=== PATIENT | female | born 1970 | race Caucasian/White ===

== ENCOUNTER 2017-06-19 12:28 | Inpatient (IN) | payer OTHER, MEDICARE ==
[~2017-06-19] VITALS: Ht 157.5 cm; Wt 76.5 kg
[~2017-06-19 12:28] MED LIST: ABIL15TA2 PO; ADVA250A INH; ALBU0.086 INH; CELE20TA PO; LEVA750T9 PO; LORTA5 PO; PANT20 PO; PRED20 PO; VENL50TA PO
[2017-06-19 12:47] VITALS: BP 139/88; PULSE 99; RESP 16; TEMP 97.5; O2SAT 97
[2017-06-19 12:55] VITALS: BP 139/88; PULSE 92; RESP 16; O2SAT 98
[2017-06-19] MEDS ORDERED: OXCA600T32 PO (13:01)
[2017-06-19] MEDS ORDERED: PANT20 PO (13:01)
[2017-06-19] MEDS ORDERED: ADVA250A INH (13:01)
[2017-06-19] MEDS ORDERED: VENL50TA PO (13:01)
[2017-06-19] MEDS ORDERED: ALBUAER3 INH (13:01)
[2017-06-19] MEDS ORDERED: CITA20TA4 PO (13:01)
--- NOTE | 2017-06-19 13:02 | PD ---
HPI Chief Complaint: Psychiatric Symptoms Time Seen by Provider: 12:58 Travel History International Travel<30 days: No Contact w/Intl Traveler<30days: No Traveled to known affect area: No History of Present Illness HPI 46-year-old female presents to the emergency Department under Her act by local police. The patient is a poor historian. She states that she is the holy Jacqui and is trying to save our planet. According the Her act, she thought she was from [place] when police arrived. She is oriented to person, place , time. According the Her act, she does have a history of bipolar disorder. It is unclear she is taking her medications that she is unsure herself. PFSH Past Medical History Bipolar Disorder: Yes Anxiety: Yes Depression: Yes COPD: Yes Diabetes: Yes (TYPE II) Patient Takes Glucophage: No Diminished Hearing: No Seizures: Yes Influenza Vaccination: No ?: Not Menopausal: No : 1 Para: 1 : 2 Past Surgical History Hysterectomy: Yes (PARTIAL) Tonsillectomy: Yes Other Surgery: Yes (SKIN CA REMOVED) Social History Alcohol Use: Yes (BEER WEEKLY) Tobacco Use: Yes (1 / PPD) Substance Use: No Allergies-Medications (Allergen,Severity, Reaction): Coded Allergies: Amoxicillin (Verified Allergy, Mild, VOMITING, 06/19/17) Reported Meds & Prescriptions Reported Meds & Active Scripts Active Effexor (Venlafaxine HCl) 50 Mg Tab 50 Mg PO BID 30 Days Reported Oxtellar Xr (Oxcarbazepine) 600 Mg Tab 900 Mg PO DAILY Effexor (Venlafaxine HCl) 50 Mg Tab 50 Mg PO Q12H Protonix (Pantoprazole Sodium) 20 Mg Tab 20 Mg PO DAILY Advair Diskus Inh (Fluticasone-Salmeterol Inh) 250-50 Mcg/Blist Aer 1 Puff INH BID Rinse mouth after use. Citalopram (Citalopram Hydrobromide) 20 Mg Tab 20 Mg PO DAILY Proair Hfa 8.5 GM Inh (Albuterol Sulfate) 90 Mcg/Act Aer 2 Puff INH Q4-6H PRN 108 mcg/actuation Review of Systems Except as stated in HPI: all other systems reviewed are Neg Physical Exam Exam Limitations: Psychotic Narrative GENERAL: Well-nourished, well-developed female patient, afebrile. Patient is alert. She is oriented to person, place, time. SKIN: Focused skin assessment warm/dry. HEAD: Normocephalic. EYES: No scleral icterus. No injection or drainage. NECK: Supple, trachea midline. No JVD or lymphadenopathy. CARDIOVASCULAR: Regular rate and rhythm without murmurs, gallops, or rubs. RESPIRATORY: Breath sounds equal bilaterally. No accessory muscle use. GASTROINTESTINAL: Abdomen soft, non-tender, nondistended. MUSCULOSKELETAL: No cyanosis, or edema. PSYCHIATRIC: Patient is delusional believing she is the last of the holy jacqui and is trying to save our planet. Data Data Last Documented VS Vital Signs Date Time Temp Pulse Resp B/P Pulse Ox O2 Delivery O2 Flow Rate FiO2 06/19/17 12:55 92 16 139/88 98 Room Air 06/19/17 12:47 97.5 Orders Complete Blood Count With Diff (06/19/17 12:57) Comprehensive Metabolic Panel (06/19/17 12:57) Psych Screen (06/19/17 12:57) Drug Screen, Random Urine (06/19/17 12:57) Alcohol (Ethanol) (06/19/17 12:57) Ct Brain W/O Iv Contrast(Rout) (06/19/17 ) Urinalysis - C+S If Indicated (06/19/17 13:10) Cath For Specimen (06/19/17 13:10) Labs Laboratory Tests Test 06/19/17 06/19/17 13:30 13:40 White Blood Count 5.8 TH/MM3 Red Blood Count 4.86 MIL/MM3 Hemoglobin 14.9 GM/DL Hematocrit 42.4 % Mean Corpuscular Volume 87.3 FL Mean Corpuscular Hemoglobin 30.6 PG Mean Corpuscular Hemoglobin 35.1 % Concent Red Cell Distribution Width 14.2 % Platelet Count 176 TH/MM3 Mean Platelet Volume 6.9 FL Neutrophils (%) (Auto) 49.4 % Lymphocytes (%) (Auto) 38.7 % Monocytes (%) (Auto) 8.0 % Eosinophils (%) (Auto) 3.2 % Basophils (%) (Auto) 0.7 % Neutrophils # (Auto) 2.8 TH/MM3 Lymphocytes # (Auto) 2.2 TH/MM3 Monocytes # (Auto) 0.5 TH/MM3 Eosinophils # (Auto) 0.2 TH/MM3 Basophils # (Auto) 0.0 TH/MM3 CBC Comment DIFF FINAL Differential Comment Sodium Level 138 MEQ/L Potassium Level 4.0 MEQ/L Chloride Level 104 MEQ/L Carbon Dioxide Level 25.3 MEQ/L Anion Gap 9 MEQ/L Blood Urea Nitrogen 11 MG/DL Creatinine 0.76 MG/DL Estimat Glomerular Filtration 82 ML/MIN Rate Random Glucose 87 MG/DL Calcium Level 9.2 MG/DL Total Bilirubin 0.4 MG/DL Aspartate Amino Transf 12 U/L (AST/SGOT) Alanine Aminotransferase 19 U/L (ALT/SGPT) Alkaline Phosphatase 70 U/L Total Protein 6.7 GM/DL Albumin 3.9 GM/DL Ethyl Alcohol Level LESS THAN 3 MG/DL Urine Color YELLOW Urine Turbidity CLEAR Urine pH 7.0 Urine Specific [place] 1.023 Urine Protein TRACE mg/dL Urine Glucose (UA) NEG mg/dL Urine Ketones 10 mg/dL Urine Occult Blood NEG Urine Nitrite NEG Urine Bilirubin NEG Urine Urobilinogen 2.0 MG/DL Urine Leukocyte Esterase NEG Urine RBC 2 /hpf Urine WBC LESS THAN 1 /hpf Urine Squamous Epithelial 2 /hpf Cells Urine Mucus FEW /lpf Microscopic Urinalysis Comment CULT NOT INDICATED Urine Opiates Screen NEG Urine Barbiturates Screen NEG Urine Amphetamines Screen NEG Urine Benzodiazepines Screen NEG Urine Cocaine Screen NEG Urine Cannabinoids Screen POS MDM Medical Decision Making Medical Screen Exam Complete: Yes Emergency Medical Condition: Yes Medical Record Reviewed: Yes Interpretation(s) CT brain - CONCLUSION: Unremarkable study except for slight mucoperiosteal thickening right maxillary sinus Differential Diagnosis Bipolar disorder versus schizophrenia versus psychosis versus substance abuse versus intracranial abnormality for electrolyte abnormality Narrative Course 46-year-old female presents to the emergency Department under Her act by local police for psychiatric evaluation. Patient is bizarre. CBC, CMP, alcohol level, UA, urine drug screen are ordered and pending. CT of the brain is ordered and pending. CBC shows no acute abnormality. CMP shows no acute abnormality. Alcohol level is less than 3. UDS is positive for cannabinoids. UA is negative for acute infection. CT of the brain shows unremarkable study except for slight mucoperiosteal thickening right maxillary sinus. Patient is medically cleared for psychiatric screening and disposition. Mental health screening discussed with the patient. Psychiatric screen ordered. Diagnosis Primary Impression: Bipolar disorder Qualified Code: F31.2 - Bipolar affective disorder, currently manic, severe, with psychotic features Additional Impression: Medical clearance for psychiatric admission Additional Instructions: Patient is medically cleared for psychiatric screening and disposition. Condition: Stable Pilar Wade Jun 19, 2017 13:02
[2017-06-19 13:48] LABS: AUTOMATED NEUTROPHIL # 2.8 TH/MM3 (1.8-7.7); BASOPHIL % 0.7 % (0.0-2.0); EOSINOPHIL # 0.2 TH/MM3 (0-0.4); EOSINOPHIL % 3.2 % (0.0-4.0); HEMATOCRIT 42.4 % (35.0-46.0); HEMO FLAGS DIFF FINAL; LYMPH % 38.7 % (9.0-44.0); LYMPHOCYTE # 2.2 TH/MM3 (1.0-4.8); MEAN CELL VOLUME 87.3 FL (80.0-100.0); MEAN CORPUSCULAR HEMOGLOBIN 30.6 PG (27.0-34.0); MEAN CORPUSCULAR HGB CONC 35.1 % (32.0-36.0); NEUT % 49.4 % (16.0-70.0); PLATELET COUNT 176 TH/MM3 (150-450); RED BLOOD COUNT 4.86 MIL/MM3 (4.00-5.30); RED CELL DISTRIBUTION WIDTH 14.2 % (11.6-17.2); WHITE BLOOD COUNT 5.8 TH/MM3 (4.0-11.0)
--- NOTE | 2017-06-19 13:50 | RADRPT ---
EXAM DATE/TIME: 06/19/2017 13:22 [place] COMPARISON: No previous studies available for comparison. INDICATIONS : Altered mental status for two weeks. RADIATION DOSE: 33.25 CTDIvol (mGy) MEDICAL HISTORY : Seizures. Diabetes mellitus type 2. Bipolar SURGICAL HISTORY : Hysterectomy. ENCOUNTER: Initial ACUITY: 2 weeks PAIN SCALE: 2/10 LOCATION: Bilateral cranial TECHNIQUE: Multiple contiguous axial images were obtained of the head. Using automated exposure control and adj ustment of the mA and/or kV according to patient size, radiation dose was kept as low as reasonably a chievable to obtain optimal diagnostic quality images. DICOM format image data is available electro nically for review and comparison. FINDINGS: There is no evidence for intracranial hemorrhage, mass effect, mass lesions, edema, or extra-axial fl uid collections. The visualized bony structures appear intact. The ventricles are normal size for t he patient's age. There are no signs of acute infarction for technique. There is mild mucoperiosteal thickening within the right maxillary sinus. CONCLUSION: Unremarkable study except for slight mucoperiosteal thickening right maxillary s inus. K. Romain Quigley MD on June 19, 2017 at 13:47 Board Certified Radiologist. This report was verified electronically.
[2017-06-19 14:04] LABS: ANION GAP 9 MEQ/L (5-15); AST (GOT) 12 U/L (15-37); BICARBONATE 25.3 MEQ/L (21.0-32.0); BLOOD UREA NITROGEN 11 MG/DL (7-18); CHLORIDE 104 MEQ/L (98-107); GLOMERULAR FILTRATION RATE 82 ML/MIN (>89); SODIUM (NA) 138 MEQ/L (136-145)
[2017-06-19 14:07] LABS: ALKALINE PHOSPHATASE 70 U/L (45-117); ALT (GPT) 19 U/L (10-53); TOTAL BILIRUBIN ADULT 0.4 MG/DL (0.2-1.0)
[2017-06-19 14:10] LABS: BLOOD, URINE NEG (NEG); COMMENT (UR) CULT NOT INDICATED; CULTURE IF INDICATED CULT NOT INDICATED; GLUCOSE,URINE NEG (NEG); KETONE, URINE 10 mg/dL (NEG); MUCUS URINE FEW /lpf (OCC); NITRITE,URINE NEG (NEG); SQUAMOUS EPITHELIAL CELL URINE 2 /hpf (0-5); URINE COLOR YELLOW (YELLW/STRAW)
[2017-06-19 14:12] LABS: AMPHETAMINE, URINE NEG (NEG); BARBITURATES, URINE NEG (NEG); COCAINE, URINE NEG (NEG)
[2017-06-19 16:14] VITALS: BP 127/91; PULSE 103; RESP 18; O2SAT 98
[2017-06-19] MEDS ORDERED: hydrOXYzine HCL 50 MG TAB PO PRN (21:30)
[2017-06-19] MEDS ORDERED: MAGNESIUM HYDROXIDE SUSP 30 ML CUP PO PRN (21:30)
[2017-06-19] MEDS ORDERED: LORazepam 2 MG/ML VIAL IM PRN (21:30)
[2017-06-19] MEDS ORDERED: LORazepam 1 MG TAB PO PRN (21:30)
[2017-06-19] MEDS ORDERED: ALUMINUM/MAGNESIUM/SIMETH 30 ML CUP PO PRN (21:30)
[2017-06-19] MEDS ORDERED: diphenhydrAMINE HCL 50 MG/ML VIAL IM PRN (21:30)
[2017-06-19] MEDS ORDERED: diphenhydrAMINE HCL 50 MG CAP PO PRN (22:00)
[2017-06-19 22:16] VITALS: BP 113/81; PULSE 85; RESP 18; TEMP 98.5; O2SAT 98
[2017-06-20 06:20] VITALS: BP 109/61; PULSE 71; RESP 18; TEMP 98; O2SAT 95
[2017-06-20] MEDS: NICOTINE 21 MG/24 HR PATCH T-DERMAL SCH (08:21)
[2017-06-20 11:19] LABS: ANION GAP 6 MEQ/L (5-15); BICARBONATE 29.3 MEQ/L (21.0-32.0); BLOOD UREA NITROGEN 8 MG/DL (7-18); CHLORIDE 103 MEQ/L (98-107); GLOMERULAR FILTRATION RATE 80 ML/MIN (>89); POTASSIUM 4.5 MEQ/L (3.5-5.1); SODIUM (NA) 138 MEQ/L (136-145)
[2017-06-20 11:22] LABS: HDL CHOLESTEROL 51.6 MG/DL (40.0-60.0); LDL CHOLESTEROL 26 MG/DL (0-99)
[2017-06-20 13:35] LABS: HEMOGLOBIN A1a 1.2 %; HEMOGLOBIN A1b 1.5 %; HEMOGLOBIN Ao 85.3 %; HEMOGLOBIN P3 3.7 %
[2017-06-20] MEDS ORDERED: ALBUTEROL SULFATE 90 MCG/ACT HFA 8 GM INHALER INH PRN (17:15)
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
[2017-06-20 18:00] VITALS: BP 125/77; PULSE 78; RESP 18; TEMP 98.2; O2SAT 96
[2017-06-20] MEDS: VENLAFAXINE HCL 25 MG TAB PO SCH ×2 (18:20→20:17)
[2017-06-20] MEDS: risperiDONE ODT 1 MG TAB PO SCH (20:17)
[2017-06-20] MEDS: BUDESONIDE-FORMOTEROL 160/4.5 MCG INHALER INH SCH (20:18)
[2017-06-20] MEDS: REMOVE OLD NICOTINE PATCH T-DERMAL SCH (20:30)
[2017-06-21 05:50] VITALS: BP_SYST 111; BP_SYST 85; BP_DIAS 61; BP_DIAS 69; PULSE 100; PULSE 71; RESP 16; RESP 18; TEMP 97.7; TEMP 98.1; O2SAT 97; O2SAT 98
[2017-06-21] MEDS: VENLAFAXINE HCL 25 MG TAB PO SCH ×4 (05:59→21:00)
[2017-06-21] MEDS: CITALOPRAM HYDROBROMIDE 20 MG TAB PO SCH (08:50)
[2017-06-21] MEDS: NICOTINE 21 MG/24 HR PATCH T-DERMAL SCH (08:50)
[2017-06-21] MEDS: risperiDONE ODT 1 MG TAB PO SCH ×2 (08:50→21:00)
[2017-06-21] MEDS: PANTOPRAZOLE SOD 20 MG DELAYED RELEASE TAB PO SCH (08:50)
[2017-06-21] MEDS: BUDESONIDE-FORMOTEROL 160/4.5 MCG INHALER INH SCH ×2 (08:51→21:01)
[2017-06-21] MEDS: OXCARBAZEPINE 900 MG PO SCH (08:51)
--- NOTE | 2017-06-21 12:38 | PD.PSY.CON ---
Provisional Diagnosis Admission Date Jun 19, 2017 at 21:12 [place] I. Schizoaffective disorder bipolar type F 25.0 History of Present Illness Service Psychiatry Consult Requested By Psychiatry Reason for Consult 2nd opinion Primary Care Physician Unknown HPI Pt seen and discussed with staff. Chart reviewed. Pt is a 46 YOWF who was admitted to [facility] under a BA taken out by NIMCO LEBRON alleging that pt had locked her in a room in her home and that she was from [place] and was [place]. allegedly told police that had stopped taking psychiatric medication x2 weeks and had been increasingly violent. Upon approach pt was observed muttering and talking to [facility]. She is disheveled with very poor hygiene. She is highly delusional and paranoid and believes that people are after her. She states that her has liver cancer which is a sign of the "End of Days". She reports that she has been receiving visions from God. She is compliant with medications and denies SI/HI. Past Family Social History Coded Allergies: Amoxicillin (Verified Allergy, Mild, VOMITING, 06/19/17) Active Scripts Venlafaxine Hcl (Effexor)50 Mg Tab50 Mg PO BID 30 Days Prov:Christa Cobb MD 10/26/10 Reported Medications Oxcarbazepine (Oxtellar Xr)600 Mg [id number] Mg PO DAILY 06/19/17 Venlafaxine (Effexor)50 Mg Tab50 Mg PO Q12H #60 TAB Ref 0 06/19/17 Pantoprazole (Protonix)20 Mg Tab20 Mg PO DAILY #30 TAB Ref 0 06/19/17 Fluticasone-Salmeterol Inh (Advair Diskus Inh)250-50 Mcg/Blist Aer1 Puff INH BID #1 INHALER Ref 0 Rinse mouth after use. 06/19/17 Citalopram 20 Mg Tab20 Mg PO DAILY #30 TAB Ref 0 06/19/17 Albuterol 8.5 GM Inh (Proair Hfa 8.5 GM Inh)90 Mcg/Act Aer2 Puff INH Q4-6H PRN ( SHORTNESS OF BREATH) #1 INHALER Ref 0 108 mcg/actuation 06/19/17 Current Medications Medications (Trade) Dose Ordered Sig/Nicolas Route Start Time Stop Time Status Last Admin (Ativan) 1 mg Q6H PRN PO 06/19/17 21:30 (Ativan Inj) 1 mg Q6H PRN IM 06/19/17 21:30 (Atarax) 50 mg Q6H PRN PO 06/19/17 21:30 (Benadryl) 50 mg Q6H PRN PO 06/19/17 22:00 (Tylenol) 650 mg Q4H PRN PO 06/19/17 21:30 (Milk Of Magnesia Liq) 30 ml DAILY PRN PO 06/19/17 21:30 (Mag-Al Plus Susp Liq) 30 ml Q6H PRN PO 06/19/17 21:30 (Habitrol 21 Mg Patch.24 Hr) 1 patch DAILY T-DERMAL 06/20/17 09:00 06/21/17 08:50 Miscellaneous Information 1 HS T-DERMAL 06/20/17 21:00 (Tylenol) 650 mg Q4H PRN PO 06/20/17 17:15 (Milk Of Magnesia Liq) 30 ml DAILY PRN PO 06/20/17 17:15 (Mag-Al Plus Susp Liq) 30 ml Q6H PRN PO 06/20/17 17:15 (Proair Hfa Inh) 2 puff BID PRN INH 06/20/17 17:15 (CeleXA) 20 mg DAILY PO 06/21/17 09:00 06/21/17 08:50 (Protonix) 20 mg DAILY PO 06/21/17 09:00 06/21/17 08:50 (Effexor) 50 mg Q12H PO 06/20/17 18:00 06/21/17 05:59 (Symbicort 160-4.5 Inh) 2 puff BID INH 06/20/17 21:00 06/21/17 08:51 Patient Own Medication PT OWN MED: (Oxcarbazepine (Oxtellar ... DAILY PO 06/21/17 09:00 06/21/17 08:51 (Effexor) 50 mg BID PO 06/20/17 21:00 06/21/17 08:50 (risperDAL M-TAB) 1 mg BID PO 06/20/17 21:00 06/21/17 08:50 Social History , lives in home with spouse. Patient's Strengths (min. 2) Patient verbal , access to health care Physical Exam Vital Signs Vital Signs Date Time Temp Pulse Resp B/P Pulse Ox O2 Delivery O2 Flow Rate FiO2 06/21/17 05:50 98.1 71 16 111/69 97 06/19/17 16:14 Room Air Mental Status Examination Speech: Pressured, Incoherent, Tangential Orientation: Person, Place, Date, Situation Memory: Impaired (describe) Thought Process: Loose Association Thought Content: Bizarre thinking, Paranoid (and grandiose) Hallucination Type: Auditory Attention and Concentration: Easily Distracted, Other (poor) Suicidal Ideation: No (denies) Previous Suicide Attempts: No (denies) Homicidal Ideation: No (denies) Previous Homicide Attempts: No (denies) Insight: Poor Judgment: Poor Affect if Inappropriate: Blunt Mood: Anxious Motor Activity: Normal gait Assessment & Plan Problem List: (1) Schizoaffective disorder, bipolar type ICD Code: F25.0 Assessment & Plan I agree that pt meets criteria for BA. 2nd opinion paperwork completed. LOS: days Request HC Surrog/Guard Advoc?: Yes Bhavna Morales MD Jun 21, 2017 12:38 Suicidal Ideation: No (deny) Previous Suicide Attempts: No (diabetes) Homicidal Ideation: No (denies) Previous Homicide Attempts: No (denies) Insight: Poor Judgment: Poor Affect: Other (slight increase range intensity) Mood: Euthymic, Oppositional, Irritable Motor Activity: Normal gait Assessment & Plan Problem List: (1) Schizoaffective disorder, bipolar type ICD Code: F25.0 Assessment & Plan Estimated LOS: days Request HC Surrog/Guard Advoc?: Yes Bhavna Morales MD Jun 21, 2017 12:38
--- NOTE | 2017-06-21 15:43 | PD.CONS ---
HPI Service [facility] Consult Requested By Psychiatry team Reason for Consult Assist in management of medical condition Primary Care Physician Unknown Diagnoses: History of Present Illness Written by Cesar Diallo, acting as scribe for Dr. Bernstein on 06/21/17 at 15:35. Patient is a 46-year-old female with primary medical history of COPD, IBS constipation type, bipolar disorder, anxiety, depression who came in to the hospital under [employer] act by the police. As per review of records, patient states that she is to [place] and is trying to save the planet, as per [employer] act paper works patient thought she was from [place] when police arrived. She is now admitted to inpatient psychiatry unit for further evaluation. Consulted for medical management. Patient seen and examined today. States that she was brought in by the police but did not elaborate on it. Patient reports that she is feeling cold and feeling tired just like every day. States she continues to have on and off constipation and that she has IBS and she is on them status 4.. States that she is being followed by Dr. Ramiro Gibson in the outpatient setting and that she forgot the name of the paper cup machine tender that saw her diagnosing her with IBS. Patient also states she has COPD and possibly diabetes because her grandfather has diabetes. During examination and conversation with patient, every time she refers her diagnosis and answers to her question she refers to her " Don" also having the same exact diagnosis. Denies pain and discomfort. Denies SOB/ dyspnea. Denies chest pain, palpitations, headaches, dizziness. Denies fevers, chills, n/v/d. Denies dysuria. Review of Systems ROS Limitations: Poor Historian Except as stated in HPI: all other systems reviewed are Neg Past Family Social History Allergies: Coded Allergies: Amoxicillin (Verified Allergy, Mild, VOMITING, 06/19/17) Past Medical History Bipolar disorder Anxiety Depression COPD IBS constipation type Past Surgical History Partial hysterectomy Tonsillectomy Skin cancer removal? Mole removal Reported Medications Reported Meds & Active Scripts Active Effexor (Venlafaxine HCl) 50 Mg Tab 50 Mg PO BID 30 Days Reported Oxtellar Xr (Oxcarbazepine) 600 Mg Tab 900 Mg PO DAILY Effexor (Venlafaxine HCl) 50 Mg Tab 50 Mg PO Q12H Protonix (Pantoprazole Sodium) 20 Mg Tab 20 Mg PO DAILY Advair Diskus Inh (Fluticasone-Salmeterol Inh) 250-50 Mcg/Blist Aer 1 Puff INH BID Rinse mouth after use. Citalopram (Citalopram Hydrobromide) 20 Mg Tab 20 Mg PO DAILY Proair Hfa 8.5 GM Inh (Albuterol Sulfate) 90 Mcg/Act Aer 2 Puff INH Q4-6H PRN 108 mcg/actuation Active Ordered Medications Current Medications Medications (Trade) Dose Ordered Sig/Nioclas Route Start Time Stop Time Status Last Admin (Ativan) 1 mg Q6H PRN PO 06/19/17 21:30 (Ativan Inj) 1 mg Q6H PRN IM 06/19/17 21:30 (Atarax) 50 mg Q6H PRN PO 06/19/17 21:30 (Benadryl) 50 mg Q6H PRN PO 06/19/17 22:00 (Tylenol) 650 mg Q4H PRN PO 06/19/17 21:30 (Milk Of Magnesia Liq) 30 ml DAILY PRN PO 06/19/17 21:30 (Mag-Al Plus Susp Liq) 30 ml Q6H PRN PO 06/19/17 21:30 (Habitrol 21 Mg Patch.24 Hr) 1 patch DAILY T-DERMAL 06/20/17 09:00 06/21/17 08:50 Miscellaneous Information 1 HS T-DERMAL 06/20/17 21:00 (Tylenol) 650 mg Q4H PRN PO 06/20/17 17:15 (Milk Of Magnesia Liq) 30 ml DAILY PRN PO 06/20/17 17:15 (Mag-Al Plus Susp Liq) 30 ml Q6H PRN PO 06/20/17 17:15 (Proair Hfa Inh) 2 puff BID PRN INH 06/20/17 17:15 (CeleXA) 20 mg DAILY PO 06/21/17 09:00 06/21/17 08:50 (Protonix) 20 mg DAILY PO 06/21/17 09:00 06/21/17 08:50 (Effexor) 50 mg Q12H PO 06/20/17 18:00 06/21/17 05:59 (Symbicort 160-4.5 Inh) 2 puff BID INH 06/20/17 21:00 06/21/17 08:51 Patient Own Medication PT OWN MED: (Oxcarbazepine (Oxtellar ... DAILY PO 06/21/17 09:00 06/21/17 08:51 (Effexor) 50 mg BID PO 06/20/17 21:00 06/21/17 08:50 (risperDAL M-TAB) 1 mg BID PO 06/20/17 21:00 06/21/17 08:50 Family History Grandfather had diabetes and of a heart attack Social History Drinks wine coolers almost every day Smokes half a pack per day Marijuana use, last use prior to being in the hospital Physical Exam Vital Signs Vital Signs Date Time Temp Pulse Resp B/P Pulse Ox O2 Delivery O2 Flow Rate FiO2 06/21/17 05:50 98.1 71 16 111/69 97 06/20/17 18:00 98.2 78 18 125/77 96 Physical Exam GENERAL: This is a disheveled, appears older than stated age, well-developed patient, in no apparent distress. SKIN: Warm and dry. HEAD: Normocephalic. EYES: Pupils equal round and reactive. No scleral icterus. No injection or drainage. ENT: Nose without bleeding. Throat without erythema. Uvula midline. Airway patent. NECK: Trachea midline. CARDIOVASCULAR: Regular rate and rhythm without murmurs, gallops, or rubs. RESPIRATORY: Diminished breath sounds No wheezes, rales, or rhonchi. GASTROINTESTINAL: Abdomen soft, non-tender, nondistended. No guarding. Bowel sounds active 4 MUSCULOSKELETAL: Extremities without clubbing, cyanosis, or edema. NEUROLOGICAL: Awake and alert. Motor and sensory grossly within normal limits. Normal speech. Result Diagram: 06/19/17 1330 06/20/17 1027 Assessment and Plan Problem List: (1) Schizoaffective disorder, bipolar type ICD Code: F25.0 Status: Acute (2) COPD (chronic obstructive pulmonary disease) ICD Code: J44.9 Status: Acute (3) ETOH abuse ICD Code: F10.10 Status: Chronic Assessment and Plan Patient is a 46-year-old female with primary medical history of COPD, IBS constipation type, bipolar disorder, anxiety, depression who came in to the hospital under Her act by the police. As per review of records, patient states that she is to [place] and is trying to save the planet, as per [employer] act paper works patient thought she was from [place] when police arrived. She is now admitted to inpatient psychiatry unit for further evaluation. Consulted for medical management. Schizoaffective disorder, bipolar type, anxiety, depression - Managed by psychiatry team COPD, no exacerbation - Patient home meds include Advair, ProAir` - Monitor respiratory status - Counseled on smoking cessation EtOH - Monitor for signs and symptoms withdrawals, almost every day wine coolers - Add thiamin, folate Tobacco abuse - Nicotine patch. Counseled. IBS, constipation type - States she takes Linzess - Not on her med list. I'll ask nursing to reconcile meds and find out pharmacy information Patient's labs reviewed, no diabetes noted hemoglobin A1c 5.6 DVT prop ambulatory This note was transcribed by edward SUH. I, Dr. China Bernstein personally performed the history, physical exam, and medical decision making; and confirmed the accuracy of the information in the transcribed note. Authenticated by Dr. China Bernstein on 06/21/17 at 15:35. Code Status Full code Discussed Condition With Patient, nursing Cesar Garza Jun 21, 2017 15:43 China Bernstein MD Jun 21, 2017 18:32
[2017-06-21 18:21] VITALS: BP 106/67; PULSE 77; RESP 16; TEMP 97.6; O2SAT 99
[2017-06-21] MEDS: REMOVE OLD NICOTINE PATCH T-DERMAL SCH (21:00)
[2017-06-22 06:21] VITALS: BP 100/59; PULSE 94; RESP 18; TEMP 98.7; O2SAT 96
[2017-06-22] MEDS: OXCARBAZEPINE 900 MG PO SCH (09:00)
[2017-06-22] MEDS: risperiDONE ODT 1 MG TAB PO SCH ×2 (09:00→21:00)
[2017-06-22] MEDS: VENLAFAXINE HCL 25 MG TAB PO SCH ×2 (09:53→21:30)
[2017-06-22] MEDS: NICOTINE 21 MG/24 HR PATCH T-DERMAL SCH (09:53)
[2017-06-22] MEDS: CITALOPRAM HYDROBROMIDE 20 MG TAB PO SCH (09:53)
[2017-06-22] MEDS: PANTOPRAZOLE SOD 20 MG DELAYED RELEASE TAB PO SCH (09:53)
[2017-06-22] MEDS: BUDESONIDE-FORMOTEROL 160/4.5 MCG INHALER INH SCH ×2 (09:54→21:30)
--- NOTE | 2017-06-22 11:56 | HHI.PYPN ---
Subjective Remarks Patient seen in [facility] with nurse Brittany and medical student Selina. Chart reviewed. Patient compliant medications. Patient somewhat calmer more organized today patient is not as disorganized though she still quite delusional stating that her that her son recently took this patient able up to [place] stating that she in her son and her are together because they are so roommates. Patient does denies suicidality. For now continue treatment Review of Systems Except as stated in HPI: all other systems reviewed are Neg Objective Alert: Yes [place]: Person, Place Mood: Agitated (very mildly so when questioned somewhat intensely), Anxious, Calm Affect: Other (good range and intensity) Memory Intact: Comment (poor) Hallucinations: Other (denies appears to be responding to internal stimuli) Delusions: Yes Delusion Type: Grandiose, Paranoid Suicidal: Ideation (denies) Homicidal: Ideation (denies) Insight/Judgment Poor Vitals/IOs Vital Signs Date Time Temp Pulse Resp B/P Pulse Ox O2 Delivery O2 Flow Rate FiO2 06/22/17 06:21 98.7 94 18 100/59 96 06/19/17 16:14 Room Air Assessment & Plan Problem List: (1) Schizoaffective disorder, bipolar type ICD Code: F25.0 Assessment & Plan Estimated LOS: days patient remains quite psychotic and delusional, she is compliant medications. For now continue treatment Justification for Cont. Inpt. At this time patient will decompensate if placed in the lower level of care Discharge Planning To be determined Request HC Surrog/Guard Advoc?: Yes Bart Albarado MD Jun 22, 2017 11:56
[2017-06-22 18:16] VITALS: BP 110/71; PULSE 90; RESP 18; TEMP 98.3; O2SAT 99
[2017-06-22] MEDS: REMOVE OLD NICOTINE PATCH T-DERMAL SCH (21:00)
[2017-06-22] MEDS: ACETAMINOPHEN 325 MG TAB PO PRN (21:34)
[2017-06-23 06:20] VITALS: BP 92/66; PULSE 104; RESP 18; TEMP 98.1; O2SAT 95
[2017-06-23] MEDS: OXCARBAZEPINE 900 MG PO SCH (09:00)
[2017-06-23] MEDS: risperiDONE ODT 1 MG TAB PO SCH (09:03)
[2017-06-23] MEDS: PANTOPRAZOLE SOD 20 MG DELAYED RELEASE TAB PO SCH (09:03)
[2017-06-23] MEDS: NICOTINE 21 MG/24 HR PATCH T-DERMAL SCH (09:03)
[2017-06-23] MEDS: VENLAFAXINE HCL 25 MG TAB PO SCH ×2 (09:04→20:19)
[2017-06-23] MEDS: BUDESONIDE-FORMOTEROL 160/4.5 MCG INHALER INH SCH ×2 (09:04→20:19)
[2017-06-23] MEDS: CITALOPRAM HYDROBROMIDE 20 MG TAB PO SCH (09:04)
--- NOTE | 2017-06-23 12:36 | HHI.PYPN ---
Subjective Remarks Patient seen on unit in dayroom with medical student Selina. Patient continues markedly psychotic and delusional, but delusions seem to be expanding somewhat. She now states she and her are adamant, that her son is stranding on [place]. They need to go to [place] to rescue her son. She also feels that she and her are tasked with saving the earrth. Patient also stated today that she feels people can hear her thoughts. Thought broadcasting. Will increase Respinol M tab to 2 mg twice a day patient is compliant medications, no significant behavioral problems Review of Systems Except as stated in HPI: all other systems reviewed are Neg Objective Alert: Yes [place]: Person, Place Mood: Agitated (very mildly so when questioned somewhat intensely), Anxious, Calm Affect: Other (good range and intensity) Memory Intact: Comment (poor) Hallucinations: Other (denies appears to be responding to internal stimuli) Delusions: Yes Delusion Type: Grandiose, Paranoid Suicidal: Ideation (denies) Homicidal: Ideation (denies) Insight/Judgment Very poor Vitals/IOs Vital Signs Date Time Temp Pulse Resp B/P Pulse Ox O2 Delivery O2 Flow Rate FiO2 06/23/17 06:20 98.1 104 18 92/66 95 06/19/17 16:14 Room Air Assessment & Plan Problem List: (1) Schizoaffective disorder, bipolar type ICD Code: F25.0 Assessment & Plan Estimated LOS: days patient remains markedly psychotic and delusional, though most significant behavioral problems. Also showing no insight. She medication adjustment above Justification for Cont. Inpt. At this time patient will decompensate if placed in a lower level of care Discharge Planning To be determined Request HC Surrog/Guard Advoc?: Yes Bart Albarado MD Jun 23, 2017 12:36
[2017-06-23 18:15] VITALS: BP 113/77; PULSE 107; RESP 19; TEMP 97.2; O2SAT 100
[2017-06-23] MEDS: risperiDONE ODT 2 MG TAB PO SCH (20:19)
[2017-06-23] MEDS: REMOVE OLD NICOTINE PATCH T-DERMAL SCH (20:20)
[2017-06-24] MEDS: ACETAMINOPHEN 325 MG TAB PO PRN (00:25)
[2017-06-24] MEDS: ALUMINUM/MAGNESIUM/SIMETH 30 ML CUP PO PRN (00:47)
[2017-06-24 06:16] VITALS: BP 99/60; PULSE 109; RESP 18; TEMP 98.4; O2SAT 97
[2017-06-24] MEDS: risperiDONE ODT 2 MG TAB PO SCH ×2 (09:00→20:49)
[2017-06-24] MEDS: VENLAFAXINE HCL 25 MG TAB PO SCH ×2 (09:00→20:49)
[2017-06-24] MEDS: BUDESONIDE-FORMOTEROL 160/4.5 MCG INHALER INH SCH ×2 (09:00→20:50)
[2017-06-24] MEDS: PANTOPRAZOLE SOD 20 MG DELAYED RELEASE TAB PO SCH (09:00)
[2017-06-24] MEDS: OXCARBAZEPINE 900 MG PO SCH (09:00)
[2017-06-24] MEDS: CITALOPRAM HYDROBROMIDE 20 MG TAB PO SCH (09:00)
[2017-06-24] MEDS: NICOTINE 21 MG/24 HR PATCH T-DERMAL SCH (09:01)
--- NOTE | 2017-06-24 15:24 | HHI.PYPN ---
Subjective Remarks Patient seen today in her room with nurse Migdalia, chart review, patient compliant with meds. Patient still delusional and psychotic, feeling she never are and many and may need to go to [place] to rescue their son. Patient scheduled for Her court tomorrow Review of Systems Except as stated in HPI: all other systems reviewed are Neg Objective Alert: Yes [place]: Person, Place Mood: Agitated (very mildly so when questioned somewhat intensely), Anxious, Calm Affect: Other (good range and intensity) Memory Intact: Comment (poor) Hallucinations: Other (denies appears to be responding to internal stimuli) Delusions: Yes Delusion Type: Grandiose, Paranoid Suicidal: Ideation (denies) Homicidal: Ideation (denies) Insight/Judgment Poor Vitals/IOs Vital Signs Date Time Temp Pulse Resp B/P Pulse Ox O2 Delivery O2 Flow Rate FiO2 06/24/17 06:16 98.4 109 18 99/60 97 Assessment & Plan Problem List: (1) Schizoaffective disorder, bipolar type ICD Code: F25.0 Assessment & Plan Estimated LOS: days patient continues delusional and psychotic, for now continue treatment Justification for Cont. Inpt. At this time patient will decompensate placed in the lower level of care Discharge Planning To be determined Request HC Surrog/Guard Advoc?: Yes Bart Albarado MD Jun 24, 2017 15:24
[2017-06-24] MEDS ORDERED: POLYETHYLENE GLYCOL 17 GM PKG PO ONE (16:00)
[2017-06-24] MEDS ORDERED: FOLIC ACID 1 MG TAB PO ONE (16:15)
[2017-06-24] MEDS ORDERED: THIAMINE HCL 100 MG TAB PO ONE (16:15)
[2017-06-24] MEDS ORDERED: RESP: ALBUTEROL 2.5 MG/IPRATROPIUM 0.5 MG NEB (PRN) NEB (16:15)
--- NOTE | 2017-06-24 16:25 | HHI.PR ---
Subjective Remarks Follow-up on patient with COPD and IBS constipation type. Patient seen and examined today. Patient complains of constipation although admits to having a bowel movement this morning but states it was small and hard. She normally takes Linzess at home. Discussed with nurse updating the medication reconciliation. Patient denies any other complaints at this time. She denies any nausea, vomiting or abdominal pain. She denies any fever or chills. Denies any chest pain or shortness of breath. Objective Vitals Vital Signs Date Time Temp Pulse Resp B/P Pulse Ox O2 Delivery O2 Flow Rate FiO2 06/24/17 06:16 98.4 109 18 99/60 97 06/23/17 18:15 97.2 107 19 113/77 100 Result Diagram: 06/20/17 1027 Imaging Last Impressions Head CT 06/19/17 0000 Signed Impressions: Service Date/Time: Monday, June 19, 2017 13:22 - CONCLUSION: Unremarkable study except for slight mucoperiosteal thickening right maxillary sinus. Anjum Quigley MD Objective Remarks GENERAL: This is a disheveled, appears older than stated age, well-developed patient, in no apparent distress. Sleeping but easily awakens to voice. SKIN: Warm and dry. HEAD: Normocephalic. EYES: EOMI. No scleral icterus. No injection or drainage. ENT: Nose without bleeding. Throat without erythema. Uvula midline. Airway patent. NECK: Trachea midline. CARDIOVASCULAR: Regular rate and rhythm without murmurs, gallops, or rubs. RESPIRATORY: Diminished breath sounds but poor effort. No wheezes, rales, or rhonchi. GASTROINTESTINAL: Abdomen soft, non-tender, nondistended. No guarding. Bowel sounds active 4 MUSCULOSKELETAL: Extremities without clubbing, cyanosis, or edema. NEUROLOGICAL: Awake and alert. Motor and sensory grossly within normal limits. Normal speech. Medications and IVs Current Medications Medications (Trade) Dose Ordered Sig/Nicolas Route Start Time Stop Time Status Last Admin (Ativan) 1 mg Q6H PRN PO 06/19/17 21:30 (Ativan Inj) 1 mg Q6H PRN IM 06/19/17 21:30 (Atarax) 50 mg Q6H PRN PO 06/19/17 21:30 (Benadryl) 50 mg Q6H PRN PO 06/19/17 22:00 (Tylenol) 650 mg Q4H PRN PO 06/19/17 21:30 06/24/17 00:25 (Habitrol 21 Mg Patch.24 Hr) 1 patch DAILY T-DERMAL 06/20/17 09:00 06/24/17 09:01 Miscellaneous Information 1 HS T-DERMAL 06/20/17 21:00 06/23/17 20:20 (Tylenol) 650 mg Q4H PRN PO 06/20/17 17:15 (Milk Of Magnesia Liq) 30 ml DAILY PRN PO 06/20/17 17:15 (Mag-Al Plus Susp Liq) 30 ml Q6H PRN PO 06/20/17 17:15 06/24/17 00:47 (Proair Hfa Inh) 2 puff BID PRN INH 06/20/17 17:15 (CeleXA) 20 mg DAILY PO 06/21/17 09:00 06/24/17 09:00 (Protonix) 20 mg DAILY PO 06/21/17 09:00 06/24/17 09:00 (Symbicort 160-4.5 Inh) 2 puff BID INH 06/20/17 21:00 06/24/17 09:00 Patient Own Medication PT OWN MED: (Oxcarbazepine (Oxtellar ... DAILY PO 06/21/17 09:00 06/21/17 08:51 (Effexor) 50 mg BID PO 06/20/17 21:00 06/24/17 09:00 (risperDAL M-TAB) 2 mg BID PO 06/23/17 21:00 06/24/17 09:00 (Yamini-Colace) 1 tab BID PO 06/24/17 21:00 (Miralax) 17 gm DAILY PO 06/25/17 09:00 A/P Problem List: (1) Schizoaffective disorder, bipolar type ICD Code: F25.0 Status: Acute (2) COPD (chronic obstructive pulmonary disease) ICD Code: J44.9 Status: Acute (3) ETOH abuse ICD Code: F10.10 Status: Chronic Assessment and Plan Patient is a 46-year-old female with primary medical history of COPD, IBS constipation type, bipolar disorder, anxiety, depression who came in to the hospital under Her act by the police. As per review of records, patient states that she is to [employer] and is trying to save the planet, as per [employer] act paper works patient thought she was from [place] when police arrived. She is now admitted to inpatient psychiatry unit for further evaluation. Consulted for medical management. Schizoaffective disorder, bipolar type, anxiety, depression - Managed by psychiatry team COPD, not in acute exacerbation - O2 sats 97% on room air - Continue on Symbicort - DuoNeb's when necessary - Monitor respiratory status - Counseled on smoking cessation Tachycardiac Hypotensive - possibly due to poor po intake - Encourage fluids - labs ordered EtOH - Monitor for signs and symptoms withdrawals, almost every day wine coolers - Continue thiamine, folate Tobacco abuse - Nicotine patch. Counseled. IBS, constipation type - States she takes Linzess - Not on her med list. Discussed with nursing reconcile meds and find out pharmacy information - Begin Yamini-Colace and MiraLAX - Monitor BMs Patient's labs reviewed, no diabetes noted hemoglobin A1c 5.6 DVT prop ambulatory Discussed with patient, nursing staff and Porsche Paredes Jun 24, 2017 16:25
[2017-06-24 17:40] VITALS: BP 103/69; PULSE 94; RESP 18; TEMP 97.9; O2SAT 97
[2017-06-24] MEDS: DOCUSATE SODIUM 50 MG/SENNA 8.6 MG TAB PO SCH (20:49)
[2017-06-24] MEDS: REMOVE OLD NICOTINE PATCH T-DERMAL SCH (20:50)
[2017-06-25 05:37] VITALS: BP 110/63; PULSE 81; RESP 18; TEMP 98; O2SAT 95
[2017-06-25] MEDS: POLYETHYLENE GLYCOL 17 GM PKG PO SCH (08:45)
[2017-06-25] MEDS: PANTOPRAZOLE SOD 20 MG DELAYED RELEASE TAB PO SCH (08:45)
[2017-06-25] MEDS: CITALOPRAM HYDROBROMIDE 20 MG TAB PO SCH (08:45)
[2017-06-25] MEDS: NICOTINE 21 MG/24 HR PATCH T-DERMAL SCH (08:45)
[2017-06-25] MEDS: THIAMINE HCL 100 MG TAB PO SCH (08:46)
[2017-06-25] MEDS: BUDESONIDE-FORMOTEROL 160/4.5 MCG INHALER INH SCH ×2 (08:46→21:29)
[2017-06-25] MEDS: FOLIC ACID 1 MG TAB PO SCH (08:46)
[2017-06-25] MEDS: DOCUSATE SODIUM 50 MG/SENNA 8.6 MG TAB PO SCH ×2 (08:46→21:29)
[2017-06-25] MEDS: risperiDONE ODT 2 MG TAB PO SCH (08:46)
[2017-06-25] MEDS: OXCARBAZEPINE 900 MG PO SCH (08:51)
[2017-06-25] MEDS: VENLAFAXINE HCL 25 MG TAB PO SCH ×2 (08:51→21:29)
[2017-06-25 12:51] LABS: AUTOMATED NEUTROPHIL # 2.4 TH/MM3 (1.8-7.7); BASOPHIL % 0.4 % (0.0-2.0); EOSINOPHIL # 0.2 TH/MM3 (0-0.4); EOSINOPHIL % 4.6 % (0.0-4.0); HEMATOCRIT 42.2 % (35.0-46.0); HEMO FLAGS DIFF FINAL; LYMPH % 41.7 % (9.0-44.0); LYMPHOCYTE # 2.1 TH/MM3 (1.0-4.8); MEAN CELL VOLUME 87.8 FL (80.0-100.0); MEAN CORPUSCULAR HEMOGLOBIN 30.5 PG (27.0-34.0); MEAN CORPUSCULAR HGB CONC 34.7 % (32.0-36.0); MONO % 6.5 % (0.0-8.0); NEUT % 46.8 % (16.0-70.0); PLATELET COUNT 141 TH/MM3 (150-450); RED CELL DISTRIBUTION WIDTH 14.1 % (11.6-17.2); WHITE BLOOD COUNT 5.1 TH/MM3 (4.0-11.0)
--- NOTE | 2017-06-25 14:54 | HHI.PYPN ---
Subjective Remarks Patient seen in [facility], case continued by Mike Torres for 4 weeks. Patient compliant medications, chart reviewed. Patient continues markedly delusional and psychotic this is somewhat exhibited concordant with the armored vehicle officer also. For now we will increase the Respinol to 3 mg twice a day. We have not yet been able to contact patient's family to gain further information concerning this lady and also talk about placement issues Review of Systems Except as stated in HPI: all other systems reviewed are Neg Objective Alert: Yes [place]: Person, Place Mood: Agitated (very mildly so when questioned somewhat intensely), Anxious, Calm Affect: Other (good range and intensity) Memory Intact: Comment (poor) Hallucinations: Other (denies appears to be responding to internal stimuli) Delusions: Yes Delusion Type: Grandiose, Paranoid Suicidal: Ideation (denies) Homicidal: Ideation (denies) Insight/Judgment Very poor Labs Test 06/25/17 12:17 White Blood Count 5.1 TH/MM3 Red Blood Count 4.80 MIL/MM3 Hemoglobin 14.6 GM/DL Hematocrit 42.2 % Mean Corpuscular Volume 87.8 FL Mean Corpuscular Hemoglobin 30.5 PG Mean Corpuscular Hemoglobin 34.7 % Concent Red Cell Distribution Width 14.1 % Platelet Count 141 TH/MM3 Mean Platelet Volume 7.8 FL Neutrophils (%) (Auto) 46.8 % Lymphocytes (%) (Auto) 41.7 % Monocytes (%) (Auto) 6.5 % Eosinophils (%) (Auto) 4.6 % Basophils (%) (Auto) 0.4 % Neutrophils # (Auto) 2.4 TH/MM3 Lymphocytes # (Auto) 2.1 TH/MM3 Monocytes # (Auto) 0.3 TH/MM3 Eosinophils # (Auto) 0.2 TH/MM3 Basophils # (Auto) 0.0 TH/MM3 CBC Comment DIFF FINAL Differential Comment Vitals/IOs Vital Signs Date Time Temp Pulse Resp B/P Pulse Ox O2 Delivery O2 Flow Rate FiO2 06/25/17 05:37 98.0 81 18 110/63 95 Assessment & Plan Problem List: (1) Schizoaffective disorder, bipolar type ICD Code: F25.0 Assessment & Plan Estimated LOS: days patient seen in [facility] case continue for 4 weeks,. Patient continues markedly paranoid and delusional. See medication adjustment above Justification for Cont. Inpt. At this time patient decompensate the placed a lower level of care Discharge Planning To be determined Request HC Surrog/Guard Advoc?: Yes Bart Albarado MD Jun 25, 2017 14:54
--- NOTE | 2017-06-25 16:14 | HHI.PR ---
Addendum to Inpatient Note Additional Information Chart reviewed. Patient is stable from medical standpoint. Will sign off. Please reconsult if needed. Discussed with Dr. Day Paredes,Porsche SUH Jun 25, 2017 16:14
[2017-06-25] MEDS: ACETAMINOPHEN 325 MG TAB PO PRN (16:25)
[2017-06-25 17:50] VITALS: BP 112/70; PULSE 81; RESP 18; TEMP 97.9; O2SAT 95
[2017-06-25] MEDS: MAGNESIUM HYDROXIDE SUSP 30 ML CUP PO PRN (18:51)
[2017-06-25] MEDS: REMOVE OLD NICOTINE PATCH T-DERMAL SCH (21:00)
[2017-06-25] MEDS: risperiDONE ODT 3 MG TAB PO SCH (21:29)
[2017-06-26 06:00] VITALS: BP 109/58; PULSE 107; RESP 18; TEMP 97.9; O2SAT 96
[2017-06-26] MEDS: CITALOPRAM HYDROBROMIDE 20 MG TAB PO SCH (08:52)
[2017-06-26] MEDS: VENLAFAXINE HCL 25 MG TAB PO SCH ×2 (08:52→20:11)
[2017-06-26] MEDS: FOLIC ACID 1 MG TAB PO SCH (08:52)
[2017-06-26] MEDS: risperiDONE ODT 3 MG TAB PO SCH ×2 (08:52→20:11)
[2017-06-26] MEDS: DOCUSATE SODIUM 50 MG/SENNA 8.6 MG TAB PO SCH ×2 (08:52→20:11)
[2017-06-26] MEDS: PANTOPRAZOLE SOD 20 MG DELAYED RELEASE TAB PO SCH (08:52)
[2017-06-26] MEDS: THIAMINE HCL 100 MG TAB PO SCH (08:52)
[2017-06-26] MEDS: POLYETHYLENE GLYCOL 17 GM PKG PO SCH (08:52)
[2017-06-26] MEDS: BUDESONIDE-FORMOTEROL 160/4.5 MCG INHALER INH SCH ×2 (08:52→20:12)
[2017-06-26] MEDS: OXCARBAZEPINE 900 MG PO SCH (08:53)
[2017-06-26] MEDS: NICOTINE 21 MG/24 HR PATCH T-DERMAL SCH (08:58)
[2017-06-26 13:33] LABS: ANION GAP 6 MEQ/L (5-15); AST (GOT) 8 U/L (15-37); BICARBONATE 31.1 MEQ/L (21.0-32.0); BLOOD UREA NITROGEN 12 MG/DL (7-18); CHLORIDE 103 MEQ/L (98-107); GLOMERULAR FILTRATION RATE 96 ML/MIN (>89); MAGNESIUM 2.1 MG/DL (1.5-2.5); POTASSIUM 3.8 MEQ/L (3.5-5.1); SODIUM (NA) 140 MEQ/L (136-145)
[2017-06-26 13:34] LABS: ALT (GPT) 18 U/L (10-53)
[2017-06-26 13:43] LABS: ALKALINE PHOSPHATASE 62 U/L (45-117); TOTAL BILIRUBIN ADULT 0.4 MG/DL (0.2-1.0)
--- NOTE | 2017-06-26 14:42 | HHI.PYPN ---
Subjective Remarks Patient seen in [facility] with nurse Odalis, patient now voicing delusion that her was sodomized by multiple black males. She also stated she had an episode where she was sitting on a commode upstairs in her house and she noted beautiful angels coming up the stairs. She continues to feel like she has special nielsen, she denies mental illness. Or need for medication. This time patient remains quite psychotic delusional paranoid will offer and Ellis sustain at 234 mg IM today and every 28 days Review of Systems Except as stated in HPI: all other systems reviewed are Neg Objective Alert: Yes [place]: Person, Place Mood: Agitated (very mildly so when questioned somewhat intensely), Anxious, Calm Affect: Other (good range and intensity) Memory Intact: Comment (poor) Hallucinations: Other (denies appears to be responding to internal stimuli) Delusions: Yes Delusion Type: Grandiose, Paranoid Suicidal: Ideation (denies) Homicidal: Ideation (denies) Insight/Judgment Very poor Labs Test 06/26/17 12:28 Sodium Level 140 MEQ/L Potassium Level 3.8 MEQ/L Chloride Level 103 MEQ/L Carbon Dioxide Level 31.1 MEQ/L Anion Gap 6 MEQ/L Blood Urea Nitrogen 12 MG/DL Creatinine 0.66 MG/DL Estimat Glomerular Filtration 96 ML/MIN Rate Random Glucose 90 MG/DL Calcium Level 8.9 MG/DL Magnesium Level 2.1 MG/DL Total Bilirubin 0.4 MG/DL Aspartate Amino Transf 8 U/L (AST/SGOT) Alanine Aminotransferase 18 U/L (ALT/SGPT) Alkaline Phosphatase 62 U/L Total Protein 6.4 GM/DL Albumin 3.6 GM/DL Thyroid Stimulating Hormone 1.160 uIU/ML 3rd Gen Vitals/IOs Vital Signs Date Time Temp Pulse Resp B/P Pulse Ox O2 Delivery O2 Flow Rate FiO2 06/26/17 06:00 97.9 107 18 109/58 96 Assessment & Plan Problem List: (1) Schizoaffective disorder, bipolar type ICD Code: F25.0 Assessment & Plan Estimated LOS: days patient remained psychotic delusional paranoid, see medication addition above Justification for Cont. Inpt. At this time patient will decompensate if placed in a lower level of care Discharge Planning To be determined Request HC Surrog/Guard Advoc?: Yes Bart Albarado MD Jun 26, 2017 14:42
[2017-06-26] MEDS ORDERED: PALIPERIDONE PALMITATE 234 MG/1.5 ML SYRINGE IM SCH (15:00)
[2017-06-26 18:27] VITALS: BP 103/58; PULSE 95; RESP 18; TEMP 97.7; O2SAT 99
[2017-06-26] MEDS: REMOVE OLD NICOTINE PATCH T-DERMAL SCH (20:11)
[2017-06-27 05:46] VITALS: BP 101/56; PULSE 91; RESP 18; TEMP 97.9; O2SAT 96
[2017-06-27] MEDS: MAGNESIUM HYDROXIDE SUSP 30 ML CUP PO PRN (06:03)
[2017-06-27] MEDS: risperiDONE ODT 3 MG TAB PO SCH ×2 (08:18→20:51)
[2017-06-27] MEDS: CITALOPRAM HYDROBROMIDE 20 MG TAB PO SCH (08:18)
[2017-06-27] MEDS: DOCUSATE SODIUM 50 MG/SENNA 8.6 MG TAB PO SCH ×2 (08:19→20:52)
[2017-06-27] MEDS: POLYETHYLENE GLYCOL 17 GM PKG PO SCH (08:19)
[2017-06-27] MEDS: PANTOPRAZOLE SOD 20 MG DELAYED RELEASE TAB PO SCH (08:19)
[2017-06-27] MEDS: FOLIC ACID 1 MG TAB PO SCH (08:19)
[2017-06-27] MEDS: VENLAFAXINE HCL 25 MG TAB PO SCH ×2 (08:19→20:51)
[2017-06-27] MEDS: BUDESONIDE-FORMOTEROL 160/4.5 MCG INHALER INH SCH ×2 (08:19→20:51)
[2017-06-27] MEDS: THIAMINE HCL 100 MG TAB PO SCH (08:19)
[2017-06-27] MEDS: NICOTINE 21 MG/24 HR PATCH T-DERMAL SCH (09:00)
[2017-06-27] MEDS: OXCARBAZEPINE 900 MG PO SCH (09:00)
[2017-06-27] MEDS: ACETAMINOPHEN 325 MG TAB PO PRN (13:57)
[2017-06-27 17:49] VITALS: BP 106/66; PULSE 87; RESP 18; TEMP 97.8; O2SAT 98
--- NOTE | 2017-06-27 17:51 | HHI.PYPN ---
Subjective Remarks Patient was seen and case discussed with nursing. Per nursing patient has a seizure disorder and is not on seizure medications. She was on Trileptal at home. However Trileptal hasn't interaction with Risperdal to lower levels. Instead patient is agreeable to Keppra and nursing will call for approval. She is also apparently on Lasix 20 mg and has swollen feet today. Patient says her psychotic symptoms are resolved and none were elicited today Objective Alert: Yes [place]: Person, Place Mood: Anxious, Calm Affect: Other (good range and intensity) Memory Intact: Comment (poor) Hallucinations: Auditory (denies) Delusions: Yes Delusion Type: Grandiose, Paranoid Suicidal: Ideation (denies) Homicidal: Ideation (denies) Insight/Judgment Poor Vitals/IOs Vital Signs Date Time Temp Pulse Resp B/P Pulse Ox O2 Delivery O2 Flow Rate FiO2 06/27/17 05:46 97.9 91 18 101/56 96 Assessment & Plan Problem List: (1) Schizoaffective disorder, bipolar type ICD Code: F25.0 Assessment & Plan Add Keppra 500 mg by mouth twice a day. Consult medicine for foot swelling and possible Lasix administration Justification for Cont. Inpt. Patient will decompensate in a less restrictive setting Request HC Surrog/Guard Advoc?: Yes Jabier Mcmillan DO Jun 27, 2017 17:51
[2017-06-27] MEDS: levETIRAcetam 500 MG TAB PO SCH (20:51)
[2017-06-27] MEDS: REMOVE OLD NICOTINE PATCH T-DERMAL SCH (20:52)
[2017-06-28] MEDS: OXCARBAZEPINE 900 MG PO SCH (08:38)
[2017-06-28] MEDS: POLYETHYLENE GLYCOL 17 GM PKG PO SCH (08:39)
[2017-06-28] MEDS: NICOTINE 21 MG/24 HR PATCH T-DERMAL SCH ×2 (08:40→09:31)
[2017-06-28] MEDS: BUDESONIDE-FORMOTEROL 160/4.5 MCG INHALER INH SCH ×2 (08:40→21:42)
[2017-06-28] MEDS: risperiDONE ODT 3 MG TAB PO SCH ×2 (08:40→21:42)
[2017-06-28] MEDS: PANTOPRAZOLE SOD 20 MG DELAYED RELEASE TAB PO SCH (08:40)
[2017-06-28] MEDS: VENLAFAXINE HCL 25 MG TAB PO SCH ×2 (08:40→21:43)
[2017-06-28] MEDS: FOLIC ACID 1 MG TAB PO SCH (08:40)
[2017-06-28] MEDS: levETIRAcetam 500 MG TAB PO SCH ×3 (08:40→21:00)
[2017-06-28] MEDS: THIAMINE HCL 100 MG TAB PO SCH (08:40)
[2017-06-28] MEDS: DOCUSATE SODIUM 50 MG/SENNA 8.6 MG TAB PO SCH ×2 (08:40→21:42)
[2017-06-28] MEDS: CITALOPRAM HYDROBROMIDE 20 MG TAB PO SCH (08:40)
[2017-06-28] MEDS: ACETAMINOPHEN 325 MG TAB PO PRN (09:31)
--- NOTE | 2017-06-28 15:12 | HHI.PYPN ---
Subjective Remarks Patient was seen and case discussed with nursing. Medicine has not yet seen the patient to determine if Lasix is appropriate for her foot swelling. Patient is tolerating the Keppra well. No seizure activity. Pleasant and cooperative on exam. Denies auditory visual hallucinations. No delusions could be elicited. She is perseverative on discharge today Objective Alert: Yes [place]: Person, Place Mood: Anxious Affect: Other (good range and intensity) Memory Intact: Comment (poor) Hallucinations: Auditory (denies) Delusions: Yes Delusion Type: Paranoid Suicidal: Ideation (denies) Homicidal: Ideation (denies) Insight/Judgment Poor Vitals/IOs Vital Signs Date Time Temp Pulse Resp B/P Pulse Ox O2 Delivery O2 Flow Rate FiO2 06/27/17 17:49 97.8 87 18 106/66 98 Assessment & Plan Problem List: (1) Schizoaffective disorder, bipolar type ICD Code: F25.0 Assessment & Plan Continue current treatment plan Justification for Cont. Inpt. Patient would decompensate in a less restrictive setting. Request HC Surrog/Guard Advoc?: Yes Jabier Mcmillan DO Jun 28, 2017 15:12
--- NOTE | 2017-06-28 16:13 | HHI.PR ---
Subjective Remarks Reconsult for eval LE edema. Patient ambulating in the hallways. She denies having any cp, sob, n/v/d/c. Denies pain in her legs. Says she takes lasix at home at times for LE edema. Objective Vitals Vital Signs Date Time Temp Pulse Resp B/P Pulse Ox O2 Delivery O2 Flow Rate FiO2 06/27/17 17:49 97.8 87 18 106/66 98 Result Diagram: 06/25/17 1217 06/26/17 1228 Imaging Last Impressions Head CT 06/19/17 0000 Signed Impressions: Service Date/Time: Monday, June 19, 2017 13:22 - CONCLUSION: Unremarkable study except for slight mucoperiosteal thickening right maxillary sinus. Anjum Quigley MD Objective Remarks GENERAL: This is a disheveled, appears older than stated age, well-developed patient, in no apparent distress. CARDIOVASCULAR: Regular rate and rhythm without murmurs, gallops, or rubs. RESPIRATORY: Diminished breath sounds No wheezes, rales, or rhonchi. GASTROINTESTINAL: Abdomen soft, non-tender, nondistended. No guarding. Bowel sounds active 4 MUSCULOSKELETAL: Extremities without clubbing, cyanosis, or edema. There is no edema, no pitting edema, patient has constitutionally large calfs NEUROLOGICAL: Awake and alert. Motor and sensory grossly within normal limits. Normal speech. A/P Problem List: (1) Schizoaffective disorder, bipolar type ICD Code: F25.0 Status: Acute (2) COPD (chronic obstructive pulmonary disease) ICD Code: J44.9 Status: Acute (3) ETOH abuse ICD Code: F10.10 Status: Chronic Assessment and Plan Patient is a 46-year-old female with primary medical history of COPD, IBS constipation type, bipolar disorder, anxiety, depression who came in to the hospital under [employer] act by the police. As per review of records, patient states that she is to [employer] and is trying to save the planet, as per [employer] act paper works patient thought she was from [place] when police arrived. She is now admitted to inpatient psychiatry unit for further evaluation. Consulted for medical management. Schizoaffective disorder, bipolar type, anxiety, depression - Managed by psychiatry team There is no LE edema constitutionally large calfs. There is no pitting edema. Monitor. COPD, no exacerbation - Patient home meds include Advair, ProAir` - Monitor respiratory status - Counseled on smoking cessation EtOH - Monitor for signs and symptoms withdrawals, almost every day wine coolers - Add thiamin, folate Tobacco abuse - Nicotine patch. Counseled. IBS, constipation type - States she takes Linzess - Not on her med list. I'll ask nursing to reconcile meds and find out pharmacy information Patient's labs reviewed, no diabetes noted hemoglobin A1c 5.6 DVT prop ambulatory Code Status Full code Discussed Condition With Patient, nurse patient genevieve foster medically. Doesn't have LE edema and will not give lasix at this time. China Bernstein MD Jun 28, 2017 16:13
[2017-06-28 17:55] VITALS: BP 105/70; PULSE 91; RESP 17; TEMP 98.1; O2SAT 100
[2017-06-28] MEDS: REMOVE OLD NICOTINE PATCH T-DERMAL SCH (21:00)
[2017-06-29 05:42] VITALS: BP 109/59; PULSE 91; RESP 18; TEMP 98.2; O2SAT 97
[2017-06-29] MEDS: BUDESONIDE-FORMOTEROL 160/4.5 MCG INHALER INH SCH ×2 (08:52→20:47)
[2017-06-29] MEDS: CITALOPRAM HYDROBROMIDE 20 MG TAB PO SCH (08:53)
[2017-06-29] MEDS: risperiDONE ODT 3 MG TAB PO SCH ×2 (08:53→20:47)
[2017-06-29] MEDS: POLYETHYLENE GLYCOL 17 GM PKG PO SCH (08:53)
[2017-06-29] MEDS: DOCUSATE SODIUM 50 MG/SENNA 8.6 MG TAB PO SCH ×2 (08:53→20:46)
[2017-06-29] MEDS: VENLAFAXINE HCL 25 MG TAB PO SCH ×2 (08:53→20:47)
[2017-06-29] MEDS: levETIRAcetam 500 MG TAB PO SCH ×4 (08:53→21:00)
[2017-06-29] MEDS: THIAMINE HCL 100 MG TAB PO SCH (08:53)
[2017-06-29] MEDS: FOLIC ACID 1 MG TAB PO SCH (08:54)
[2017-06-29] MEDS: PANTOPRAZOLE SOD 20 MG DELAYED RELEASE TAB PO SCH (08:54)
[2017-06-29] MEDS: NICOTINE 21 MG/24 HR PATCH T-DERMAL SCH (09:00)
[2017-06-29] MEDS: OXCARBAZEPINE 900 MG PO SCH (09:00)
[2017-06-29] MEDS: ACETAMINOPHEN 325 MG TAB PO PRN (10:03)
--- NOTE | 2017-06-29 16:29 | HHI.PYPN ---
Subjective Remarks Patient seen today in dayroom nurse Basilio and medical students Ely and Faith. It appears patient's delusions are softening she now smiles when asked if her son is on [place] or venous. She states she doesn't know where he is plays on her. Other delusions related to her seem to be softening also. At this time I feel be appropriate to transfer the patient 2600 observe her for another 1-2 days. Patient compliant medications Review of Systems Except as stated in HPI: all other systems reviewed are Neg Objective Alert: Yes [place]: Person, Place Mood: Anxious Affect: Other (good range and intensity) Memory Intact: Comment (poor) Hallucinations: Auditory (denies) Delusions: Yes Delusion Type: Paranoid Suicidal: Ideation (denies) Homicidal: Ideation (denies) Insight/Judgment Poor Vitals/IOs Vital Signs Date Time Temp Pulse Resp B/P Pulse Ox O2 Delivery O2 Flow Rate FiO2 06/29/17 05:42 98.2 91 18 109/59 97 Assessment & Plan Problem List: (1) Schizoaffective disorder, bipolar type ICD Code: F25.0 Assessment & Plan Estimated LOS: days patient psychosis and delusions or softening, compliant medications, will transfer to 2600 to observe her behaviors Justification for Cont. Inpt. With this time patient may decompensate if placed in a lower level of care Discharge Planning To be determined Request HC Surrog/Guard Advoc?: Yes Bart Albarado MD Jun 29, 2017 16:29
[2017-06-29 18:00] VITALS: BP 105/59; PULSE 79; RESP 17; TEMP 97.7; O2SAT 98
[2017-06-29] MEDS: REMOVE OLD NICOTINE PATCH T-DERMAL SCH (21:00)
[2017-06-30] MEDS: ALUMINUM/MAGNESIUM/SIMETH 30 ML CUP PO PRN (06:02)
[2017-06-30 06:23] VITALS: BP 95/63; PULSE 63; RESP 18; TEMP 97.8; O2SAT 95
[2017-06-30] MEDS: CITALOPRAM HYDROBROMIDE 20 MG TAB PO SCH (08:37)
[2017-06-30] MEDS: BUDESONIDE-FORMOTEROL 160/4.5 MCG INHALER INH SCH (08:37)
[2017-06-30] MEDS: THIAMINE HCL 100 MG TAB PO SCH (08:37)
[2017-06-30] MEDS: FOLIC ACID 1 MG TAB PO SCH (08:37)
[2017-06-30] MEDS: POLYETHYLENE GLYCOL 17 GM PKG PO SCH (08:38)
[2017-06-30] MEDS: NICOTINE 21 MG/24 HR PATCH T-DERMAL SCH (08:38)
[2017-06-30] MEDS: DOCUSATE SODIUM 50 MG/SENNA 8.6 MG TAB PO SCH (08:38)
[2017-06-30] MEDS: OXCARBAZEPINE 900 MG PO SCH (08:38)
[2017-06-30] MEDS: PANTOPRAZOLE SOD 20 MG DELAYED RELEASE TAB PO SCH (08:38)
[2017-06-30] MEDS: levETIRAcetam 500 MG TAB PO SCH (08:38)
[2017-06-30] MEDS: VENLAFAXINE HCL 25 MG TAB PO SCH (08:38)
[2017-06-30] MEDS: risperiDONE ODT 3 MG TAB PO SCH (08:38)
[2017-06-30] MEDS ORDERED: SENN1TAB PO (13:54)
[2017-06-30] MEDS ORDERED: FOLI1TAB6 PO (13:54)
[2017-06-30] MEDS ORDERED: GNP100TA3 PO (13:54)
[2017-06-30] MEDS ORDERED: LEVE500 PO (13:54)
[2017-06-30] MEDS ORDERED: POLY17S PO (13:54)
[2017-06-30] MEDS ORDERED: RISPM3 PO (13:54)
[2017-06-30] MEDS ORDERED: PANT20 PO (13:54)
[2017-06-30] MEDS ORDERED: CELE20TA PO (13:54)
[2017-06-30] MEDS ORDERED: VENL50TA PO (13:54)
[2017-06-30] MEDS ORDERED: SYMB160A INH (13:54)
[2017-06-30] MEDS ORDERED: PALI234P IM (13:54)
--- NOTE | 2017-06-30 14:01 | HHI.DS ---
Psychiatry Discharge Summary Inpatient Psychiatric care?: Yes Advance Directive: No Reason Not Provided: Mental Health AdvanceDirective: No Health Care Proxy: No Admission Admission Date Jun 19, 2017 at 21:12 Admission Diagnosis: (1) Schizoaffective disorder, bipolar type ICD Code: F25.0 Brief History Pt seen and discussed with staff. Chart reviewed. Pt is a 46 YOWF who was admitted to [facility] [place] under a BA taken out by [place] [employer] alleging that pt had locked her in a room in her home and that she was from [place] and was [place]. allegedly told police that had stopped taking psychiatric medication x2 weeks and had been increasingly violent. Upon approach pt was observed muttering and talking to [facility]. She is disheveled with very poor hygiene. She is highly delusional and paranoid and believes that people are after her. She states that her has liver cancer which is a sign of the "End of Days". She reports that she has been receiving visions from God. She is compliant with medications and denies SI/HI. Tobacco Use In Past 30 Days: Cigarettes But Not Daily Alcohol Use: 2-3 Times Per Week Hospital Course Patient's initial psychosis and delusions slowly resolved a she continue compliant with her medications. The administration of the long-acting medication also help improve her recovery. While the delusions are diminishing there appears to be still some mild poor reality testing. Patient denies suicidality homicidality voices or visions. She states she's had good communication with her he wishes her home. She wishes to return home. At this time the patient no longer meets criteria for acute psychiatric hospitalization. I feel she may continue her recovery in less restrictive setting. Thus patient to be discharged today to herself. Rx 1 month. Also with the injection to be given on 07/24 follow-up through [facility]. Also strong recommendation absolute abstinence Results Blood Pressure 95 / 63 Vital Signs Date Time Temp Pulse Resp B/P Pulse Ox O2 Delivery O2 Flow Rate FiO2 06/30/17 06:23 97.8 63 18 95/63 95 Urine toxicology positive for marijuana Summary of Procedures None done Imaging Last Impressions Head CT 06/19/17 0000 Signed Impressions: Service Date/Time: Monday, June 19, 2017 13:22 - CONCLUSION: Unremarkable study except for slight mucoperiosteal thickening right maxillary sinus. Anjum Quigley MD Pending results at discharge: No Medications # of Antipsychotic meds at D/C: 1 Approp Antipsych med options 1 - Minimum of three failed multiple trials of monotherapy. 2 - Documented plan to taper to monotherapy due to previous use of multiple meds OR cross-taper in progress at D/C. 3 - Documentation of augmentation of Clozapine. 4 - Justification other than those listed in allowable values 1-3, document here : Discharge Discharge Date: Jun 30, 2017 Discharge Diagnosis: (1) Schizoaffective disorder, bipolar type Diagnosis: Principal ICD Code: F25.0 Mental Status Exam at Disch Alert oriented white female calm cooperative. She is normal active. Her mood is euthymic with slight decreased range and intensity of her affect. Speech rate and rhythm within normal limits there no formal thought disorders. No other visual hallucinations. Her delusions have markedly diminished to extinguished, insight and judgment is poor cognition grossly intact Pt Condition on Discharge: Stable Discharge Disposition: Discharge Home Discharge Instructions Diet Instructions: As Tolerated, No Restrictions Activities you can perform: Regular-No Restrictions Scheduled Appointment: Timoteo Waite Discharge Time > 30 minutes Discharge/Advance Care Plan Health Problems: (1) Schizoaffective disorder, bipolar type Goals to promote your health * To prevent worsening of your condition and complications * To maintain your health at the optimal level Directions to meet your goals Take your medications as prescribed Follow your dietary instruction Follow activity as directed Keep your appointments as scheduled Take your immunizations and boosters as scheduled If your symptoms worsen call your PCP, if no PCP go to Urgent Care Center or Emergency Room For 15/06 questions related to your inpatient stay or results of tests pending at discharge, please contact Dr. Bart Albarado at Smoking is Dangerous to Your Health. Avoid second hand smoking Bart Albarado MD Jun 30, 2017 14:01
== END 2017-06-30 17:55 | disposition home or self-care (01) | DRG 885 ==
LOC: NEPD 12:28 → NEDA 21:12 → H270 21:48
PROVIDERS: ADMIT Psychiatry & Neurology Psychiatry; ATTEND Psychiatry & Neurology Psychiatry
DX: F25.0 Schizoaffective disorder, bipolar type (principal); I95.9 Hypotension, unspecified; F22 Delusional disorders; G40.909 Epilepsy, unspecified, not intractable, without status epilepticus; J44.9 Chronic obstructive pulmonary disease, unspecified; F17.210 Nicotine dependence, cigarettes, uncomplicated; F12.90 Cannabis use, unspecified, uncomplicated; F10.10 Alcohol abuse, uncomplicated; K58.1 Irritable bowel syndrome with constipation; R00.0 Tachycardia, unspecified
CPT/HCPCS: 70450; 80048; 80053; 80061; 80307; 81001; 83036; 83735; 84443; 85025; 99285; J2426; P9612

== ENCOUNTER 2017-10-01 19:04 | Emergency (ER) | payer OTHER, MEDICAID ==
[~2017-10-01] VITALS: Ht 160 cm; Wt 72.0 kg
[~2017-10-01 19:04] MED LIST changes: -ABIL15TA2 PO; -ADVA250A INH; -ALBU0.086 INH; +ALBUAER3 INH; +FOLI1TAB6 PO; -LEVA750T9 PO; +LEVE500 PO; -LORTA5 PO; +OXCA600T32 PO; +PALI234P IM; +POLY17S PO; -PRED20 PO; +RISPM3 PO; +SENN1TAB PO; +SYMB160A INH; +THIA100 PO
[2017-10-01 19:16] VITALS: PULSE 100; RESP 16; TEMP 98.7; O2SAT 98
[2017-10-01] MEDS ORDERED: SODIUM CHLORIDE 0.9% FLUSH 10 ML FLUSH IVF PRN (19:45)
[2017-10-01] MEDS ORDERED: methylPREDNISolone SOD SUCC 125 MG/2 ML VIAL IV PUSH ONE (19:45)
--- NOTE | 2017-10-01 19:53 | PD ---
HPI Chief Complaint: Cold / Flu Symptoms Time Seen by Provider: 19:30 Travel History International Travel<30 days: No Contact w/Intl Traveler<30days: No Traveled to known affect area: No History of Present Illness HPI 46 years old female complains of earaches sore throat coughing congestion and fever. Patient states that the symptoms started a week and half ago. Patient states that the cough is intermittent and productive. Patient denies any chest pain or shortness of breath. Patient denies abdominal pain. Patient denies any nausea vomiting diarrhea. Patient denies any back pain. Patient denies any dysuria or frequency. Patient denies any vaginal discharge or bleeding. Patient has history of seizure however stopped taking her medications a month ago. Patient states that she does not want take seizure medications anymore. Patient states that she had a breakthrough seizure yesterday. Patient did not intracellular seizure episode. Patient denies any headache. Patient denies any visual change. Patient denies any neck pain. Patient has history COPD. Patient is a smoker. Patient denies any alcohol or illicit drug abuse recently. Patient has history of alcohol abuse in the past. PFSH Past Medical History Bipolar Disorder: Yes Anxiety: Yes Depression: Yes Cancer: Yes Cardiovascular Problems: Yes COPD: Yes Diabetes: No Diminished Hearing: No Headaches: No Psychiatric: Yes Seizures: Yes ?: Unknown Menopausal: No : 1 Para: 1 : 2 Past Surgical History Gynecologic Surgery: Yes (PARTIAL HYSTERECTOMY) Hysterectomy: Yes (PARTIAL) Tonsillectomy: Yes Other Surgery: Yes (SKIN CA REMOVED) Social History Alcohol Use: Yes (OCCASIONALLY) Tobacco Use: Yes (12 CIGARETTES/DAY) Substance Use: No Allergies-Medications (Allergen,Severity, Reaction): Coded Allergies: amoxicillin (Unverified Allergy, Mild, VOMITING, 10/01/17) Reported Meds & Prescriptions Reported Meds & Active Scripts Active Effexor (Venlafaxine HCl) 50 Mg Tab 50 Mg PO BID Gnp Vitamin B-1 (Thiamine HCl) 100 Mg Tab 100 Mg PO DAILY Senna Plus 8.6-50 mg (Sennosides-Docusate Sodium) 1 Tab Tab 1 Tab PO BID Risperdal M-Tab (Risperidone) 3 Mg Tab 3 Mg PO BID Polyethylene Glycol 3350 Powder (Polyethylene Glycol) 17 Gm Pow 17 Gm PO DAILY Protonix (Pantoprazole Sodium) 20 Mg Tab 20 Mg PO DAILY Invega Sustenna Inj (Paliperidone Palmitate) 234 Mg/1.5 Ml Inj 234 Mg IM Q28D Next injection due 07/24/17 Keppra (Levetiracetam) 500 Mg Tab 500 Mg PO Q12HR Folic Acid 1 Mg Tablet 1 Mg PO DAILY Celexa (Citalopram Hydrobromide) 20 Mg Tab 20 Mg PO DAILY Symbicort Inh (Budesonide/Formoterol Fumarate) 160-4.5 Mcg/Act Aero 2 Puff INH BID Effexor (Venlafaxine HCl) 50 Mg Tab 50 Mg PO BID 30 Days Reported Oxtellar Xr (Oxcarbazepine) 600 Mg Tab 900 Mg PO DAILY Effexor (Venlafaxine HCl) 50 Mg Tab 50 Mg PO Q12H Proair Hfa 8.5 GM Inh (Albuterol Sulfate) 90 Mcg/Act Aer 2 Puff INH Q4-6H PRN 108 mcg/actuation Review of Systems General / Constitutional: Positive: Fever Eyes: No: Visual changes HENT: Positive: Sore Throat, Earache, No: Headaches Cardiovascular: No: Chest Pain or Discomfort Respiratory: Positive: Cough, No: Shortness of Breath Gastrointestinal: No: Abdominal Pain Genitourinary: No: Dysuria Musculoskeletal: No: Pain Skin: No Rash Neurologic: No: Weakness Psychiatric: No: Depression Endocrine: No: Polydipsia Hematologic/Lymphatic: No: Easy Bruising Physical Exam Narrative GENERAL: Well-nourished, well-developed patient. SKIN: Focused skin assessment warm/dry. HEAD: Normocephalic. EYES: No scleral icterus. No injection or drainage. TM: Mild erythematous. No effusion. Throat: Mild erythematous. NECK: Supple, trachea midline. No JVD or lymphadenopathy. No meningismus CARDIOVASCULAR: Regular rate and rhythm without murmurs, gallops, or rubs. RESPIRATORY: Breath sounds equal bilaterally. No accessory muscle use. Patient has mild to moderate expiratory wheezes bilaterally. No rhonchi. GASTROINTESTINAL: Abdomen soft, non-tender, nondistended. MUSCULOSKELETAL: No cyanosis, or edema. BACK: Nontender without obvious deformity. No CVA tenderness. Neurologic exam normal. Data Data Last Documented VS Vital Signs Date Time Temp Pulse Resp B/P (MAP) Pulse Ox O2 Delivery O2 Flow Rate FiO2 10/01/17 19:58 97 21 10/01/17 19:20 16 Room Air 10/01/17 19:16 98.7 100 Orders Orders Complete Blood Count With Diff (10/01/17 19:44) Comprehensive Metabolic Panel (10/01/17 19:44) Urinalysis - C+S If Indicated (10/01/17 19:44) Influenzae A/B Antigen (10/01/17 19:44) Chest, Single Ap (10/01/17 19:44) Iv Access Insert/Monitor (10/01/17 19:44) Sodium Chloride 0.9% Flush (Ns Flush) (10/01/17 19:45) Methylprednisolone So Succ Inj (Solumedr (10/01/17 19:45) Albuterol-Ipratropium Neb (Duoneb Neb) (10/01/17 19:45) Urine Culture (10/01/17 20:25) Labs Laboratory Tests Test 10/01/17 20:25 White Blood Count 7.8 TH/MM3 Red Blood Count 4.32 MIL/MM3 Hemoglobin 13.3 GM/DL Hematocrit 38.7 % Mean Corpuscular Volume 89.5 FL Mean Corpuscular Hemoglobin 30.8 PG Mean Corpuscular Hemoglobin Concent 34.4 % Red Cell Distribution Width 13.8 % Platelet Count 148 TH/MM3 Mean Platelet Volume 8.3 FL Neutrophils (%) (Auto) 74.3 % Lymphocytes (%) (Auto) 16.2 % Monocytes (%) (Auto) 7.3 % Eosinophils (%) (Auto) 1.8 % Basophils (%) (Auto) 0.4 % Neutrophils # (Auto) 5.8 TH/MM3 Lymphocytes # (Auto) 1.3 TH/MM3 Monocytes # (Auto) 0.6 TH/MM3 Eosinophils # (Auto) 0.1 TH/MM3 Basophils # (Auto) 0.0 TH/MM3 CBC Comment DIFF FINAL Differential Comment Urine Color YELLOW Urine Turbidity HAZY Urine pH 7.0 Urine Specific [place] 1.015 Urine Protein NEG mg/dL Urine Glucose (UA) NEG mg/dL Urine Ketones NEG mg/dL Urine Occult Blood NEG Urine Nitrite NEG Urine Bilirubin NEG Urine Urobilinogen LESS THAN 2.0 MG/DL Urine Leukocyte Esterase LARGE Urine RBC 3 /hpf Urine WBC 11 /hpf Urine Squamous Epithelial Cells 9 /hpf Urine Bacteria RARE /hpf Urine Mucus FEW /lpf Microscopic Urinalysis Comment CULTURE INDICATED Blood Urea Nitrogen 7 MG/DL Creatinine 0.81 MG/DL Random Glucose 91 MG/DL Total Protein 5.9 GM/DL Albumin 3.0 GM/DL Calcium Level 8.2 MG/DL Alkaline Phosphatase 52 U/L Aspartate Amino Transf (AST/SGOT) 11 U/L Alanine Aminotransferase (ALT/SGPT) 20 U/L Total Bilirubin 0.4 MG/DL Sodium Level 142 MEQ/L Potassium Level 3.5 MEQ/L Chloride Level 106 MEQ/L Carbon Dioxide Level 27.6 MEQ/L Anion Gap 8 MEQ/L Estimat Glomerular Filtration Rate 76 ML/MIN [facility] Medical Decision Making Medical Screen Exam Complete: Yes Emergency Medical Condition: Yes Interpretation(s) Last Impressions Chest X-Ray 10/01/171943 Signed Impressions: Service Date/Time: , October 01, 2017 21:00 - CONCLUSION: Normal examination. Chester Madera Jr., MD 21:53 PM. CBC within normal limit. CMP within normal limit. UA positive WBC and bacteria. Influenza AB antigen negative. Differential Diagnosis Differential diagnosis including otitis media, pharyngitis, bronchitis, pneumonia, acute exacerbation of COPD, viral syndrome. Narrative Course 46 years old female with fever, sore throat, earache, coughing, wheezing. History of COPD and is a smoker. Patient also has history of seizure and stop taking her seizure medications a month ago. Solu-Medrol 125 mg IV. Albuterol with Atrovent unit dose treatment 1. Cipro 500 mg by mouth given. Diagnosis Primary Impression: UTI (urinary tract infection) Qualified Codes: N30.00 - Acute cystitis without hematuria Additional Impressions: Viral syndrome COPD with acute exacerbation Patient Instructions: General Instructions Additional Instructions: Cipro as directed. Use inhaler as directed. Follow-up with personal physician. Return if worse. Med/Other Pt SpecificInfo: Prescription(s) given Scripts Prednisone (Prednisone) 20 Mg Tab 20 MG PO BID, #10 TAB 0 Refills Prov: Dominic Islas MD 10/01/17 Albuterol 18 GM Inh (Ventolin Hfa 18 GM Inh) 90 Mcg/Act Aer 2 PUFF INH Q4-6H Y for SHORTNESS OF BREATH, #1 INHALER 0 Refills Prov: Dominic Islas MD 10/01/17 Ciprofloxacin (Cipro) 500 Mg Tab 500 MG PO BID for Infection, #14 TAB 0 Refills Prov: Dominic Islas MD 10/01/17 Disposition: 01 DISCHARGE HOME Condition: Stable Dominic Islas MD Oct 01, 2017 19:53
[2017-10-01] MEDS: RESP: ALBUTEROL 2.5 MG/IPRATROPIUM 0.5 MG NEB (SCH) INH (19:56)
[2017-10-01 19:58] VITALS: O2SAT 97
[2017-10-01 20:47] LABS: AUTOMATED NEUTROPHIL # 5.8 TH/MM3 (1.8-7.7); BASOPHIL % 0.4 % (0.0-2.0); EOSINOPHIL # 0.1 TH/MM3 (0-0.4); EOSINOPHIL % 1.8 % (0.0-4.0); HEMATOCRIT 38.7 % (35.0-46.0); HEMO FLAGS DIFF FINAL; LYMPH % 16.2 % (9.0-44.0); LYMPHOCYTE # 1.3 TH/MM3 (1.0-4.8); MEAN CELL VOLUME 89.5 FL (80.0-100.0); MEAN CORPUSCULAR HEMOGLOBIN 30.8 PG (27.0-34.0); MEAN CORPUSCULAR HGB CONC 34.4 % (32.0-36.0); MONO % 7.3 % (0.0-8.0); NEUT % 74.3 % (16.0-70.0); PLATELET COUNT 148 TH/MM3 (150-450); RED BLOOD COUNT 4.32 MIL/MM3 (4.00-5.30); RED CELL DISTRIBUTION WIDTH 13.8 % (11.6-17.2); WHITE BLOOD COUNT 7.8 TH/MM3 (4.0-11.0)
[2017-10-01 20:53] LABS: BACTERIA, URINE RARE /hpf; BLOOD, URINE NEG (NEG); COMMENT (UR) CULTURE INDICATED; CULTURE IF INDICATED CULTURE INDICATED; GLUCOSE,URINE NEG (NEG); KETONE, URINE NEG (NEG); MUCUS URINE FEW /lpf (OCC); NITRITE,URINE NEG (NEG); SQUAMOUS EPITHELIAL CELL URINE 9 /hpf (0-5); URINE COLOR YELLOW (YELLW/STRAW)
[2017-10-01 21:09] LABS: ANION GAP 8 MEQ/L (5-15); AST (GOT) 11 U/L (15-37); BICARBONATE 27.6 MEQ/L (21.0-32.0); BLOOD UREA NITROGEN 7 MG/DL (7-18); CHLORIDE 106 MEQ/L (98-107); GLOMERULAR FILTRATION RATE 76 ML/MIN (>89); POTASSIUM 3.5 MEQ/L (3.5-5.1); SODIUM (NA) 142 MEQ/L (136-145)
[2017-10-01 21:11] LABS: ALT (GPT) 20 U/L (10-53)
[2017-10-01 21:12] LABS: ALKALINE PHOSPHATASE 52 U/L (45-117); TOTAL BILIRUBIN ADULT 0.4 MG/DL (0.2-1.0)
--- NOTE | 2017-10-01 21:14 | RADRPT ---
EXAM DATE/TIME: 10/01/2017 21:00 [facility] COMPARISON: No previous studies available for comparison. INDICATIONS : Cough and short of breath. MEDICAL HISTORY : Seizures. Diabetes mellitus type 2. Bipolar SURGICAL HISTORY : Hysterectomy. ENCOUNTER: Initial ACUITY: 1 day PAIN SCORE: 0/10 LOCATION: Bilateral chest FINDINGS: A single view of the chest demonstrates the lungs to be symmetrically aerated without evidence of mas s, infiltrate or effusion. The cardiomediastinal contours are unremarkable. Osseous structures are intact. CONCLUSION: Normal examination. Chester Madera Jr., MD on October 01, 2017 at 21:12 Board Certified Radiologist. This report was verified electronically.
[2017-10-01] MEDS ORDERED: CIPR-9 PO (22:00)
[2017-10-01] MEDS ORDERED: CIPROFLOXACIN 500 MG TAB PO ONE (22:00)
[2017-10-01] MEDS ORDERED: VENTAER INH (22:00)
[2017-10-01] MEDS ORDERED: PRED20 PO (22:00)
[2017-10-01 22:11] VITALS: BP 109/56; PULSE 103; RESP 18; O2SAT 94
== END 2017-10-01 22:41 | disposition home or self-care (01) ==
LOC: NEPE 19:04
DX: J44.1 Chronic obstructive pulmonary disease with (acute) exacerbation (principal); B34.9 Viral infection, unspecified; N30.00 Acute cystitis without hematuria; F31.9 Bipolar disorder, unspecified; F41.9 Anxiety disorder, unspecified; R56.9 Unspecified convulsions
CPT/HCPCS: 71010; 80053; 81001; 85025; 87086; 87804; 94640; 94664; 96374; 99284; J2930

== ENCOUNTER 2017-10-07 15:39 | Emergency (ER) | payer OTHER, MEDICAID ==
[~2017-10-07 15:39] MED LIST changes: +CIPR-9 PO; +PRED20 PO; +VENTAER INH
[2017-10-07 15:47] VITALS: BP 110/70; PULSE 94; O2SAT 96
== END 2017-10-07 16:45 | disposition left against medical advice (07) ==
LOC: NEDAMB 15:39
DX: Z53.21 Procedure and treatment not carried out due to patient leaving prior to being seen by health care provider (principal)

== ENCOUNTER 2017-10-27 05:52 | Emergency (ER) | payer OTHER, MEDICAID ==
[~2017-10-27] VITALS: Ht 160 cm; Wt 65.0 kg
[2017-10-27] MEDS ORDERED: SODIUM CHLOR 0.9% 1000 ML INJ 1,000 ML IV SCH (05:55)
[2017-10-27 05:56] VITALS: BP 106/66; PULSE 70; RESP 16; TEMP 97.6; O2SAT 99
--- NOTE | 2017-10-27 05:58 | PD ---
HPI Chief Complaint: leg pain Time Seen by Provider: 05:50 Travel History International Travel<30 days: No Contact w/Intl Traveler<30days: No Traveled to known affect area: No History of Present Illness HPI This is a 46-year-old female who presents via EMS for evaluation. She reports that she has been walking all night and did not want to walk anymore and so she called the ambulance. She reports that she is tired and her legs hurt. Symptoms are mild, aggravated by walking, no alleviating factors. Denies chest pain or shortness of breath, fevers or chills, abdominal pain, nausea or vomiting. No other complaints. PFSH Past Medical History Bipolar Disorder: Yes Anxiety: Yes Depression: Yes Cancer: Yes Cardiovascular Problems: Yes COPD: Yes Diabetes: No Diminished Hearing: No Headaches: No Psychiatric: Yes Seizures: Yes Menopausal: No : 1 Para: 1 : 2 Past Surgical History Gynecologic Surgery: Yes (PARTIAL HYSTERECTOMY) Hysterectomy: Yes (PARTIAL) Tonsillectomy: Yes Other Surgery: Yes (SKIN CA REMOVED) Social History Alcohol Use: Yes (OCCASIONALLY) Tobacco Use: Yes (12 CIGARETTES/DAY) Substance Use: No Allergies-Medications (Allergen,Severity, Reaction): Coded Allergies: amoxicillin (Unverified Allergy, Mild, VOMITING, 10/01/17) Reported Meds & Prescriptions Reported Meds & Active Scripts Active Prednisone 20 Mg Tab 20 Mg PO BID Ventolin Hfa 18 GM Inh (Albuterol Sulfate) 90 Mcg/Act Aer 2 Puff INH Q4-6H PRN Cipro (Ciprofloxacin HCl) 500 Mg Tab 500 Mg PO BID Effexor (Venlafaxine HCl) 50 Mg Tab 50 Mg PO BID Gnp Vitamin B-1 (Thiamine HCl) 100 Mg Tab 100 Mg PO DAILY Senna Plus 8.6-50 mg (Sennosides-Docusate Sodium) 1 Tab Tab 1 Tab PO BID Risperdal M-Tab (Risperidone) 3 Mg Tab 3 Mg PO BID Polyethylene Glycol 3350 Powder (Polyethylene Glycol) 17 Gm Pow 17 Gm PO DAILY Protonix (Pantoprazole Sodium) 20 Mg Tab 20 Mg PO DAILY Invega Sustenna Inj (Paliperidone Palmitate) 234 Mg/1.5 Ml Inj 234 Mg IM Q28D Next injection due 07/24/17 Keppra (Levetiracetam) 500 Mg Tab 500 Mg PO Q12HR Folic Acid 1 Mg Tablet 1 Mg PO DAILY Celexa (Citalopram Hydrobromide) 20 Mg Tab 20 Mg PO DAILY Symbicort Inh (Budesonide/Formoterol Fumarate) 160-4.5 Mcg/Act Aero 2 Puff INH BID Effexor (Venlafaxine HCl) 50 Mg Tab 50 Mg PO BID 30 Days Reported Oxtellar Xr (Oxcarbazepine) 600 Mg Tab 900 Mg PO DAILY Effexor (Venlafaxine HCl) 50 Mg Tab 50 Mg PO Q12H Proair Hfa 8.5 GM Inh (Albuterol Sulfate) 90 Mcg/Act Aer 2 Puff INH Q4-6H PRN 108 mcg/actuation Review of Systems Except as stated in HPI: all other systems reviewed are Neg Physical Exam Narrative GENERAL: Well-developed well-nourished female in no acute distress SKIN: Warm and dry. HEAD: Atraumatic. Normocephalic. EYES: Pupils equal and round. No scleral icterus. No injection or drainage. ENT: No nasal bleeding or discharge. Mucous membranes pink and moist. NECK: Trachea midline. No JVD. CARDIOVASCULAR: Regular rate and rhythm. No murmur appreciated. RESPIRATORY: No accessory muscle use. Clear to auscultation. Breath sounds equal bilaterally. GASTROINTESTINAL: Abdomen soft, non-tender, nondistended. Hepatic and splenic margins not palpable. MUSCULOSKELETAL: No obvious deformities. No clubbing. No cyanosis. No edema. NEUROLOGICAL: Awake and alert. No obvious cranial nerve deficits. Motor grossly within normal limits. Normal speech. Data Data Last Documented VS Vital Signs Date Time Temp Pulse Resp B/P (MAP) Pulse Ox O2 Delivery O2 Flow Rate FiO2 10/27/17 05:56 97.6 70 16 106/66 (79) 99 Orders Orders Basic Metabolic Panel (Bmp) (10/27/17 05:55) Creatine Kinase (Cpk) (10/27/17 05:55) Sodium Chlor 0.9% 1000 Ml Inj (Ns 1000 M (10/27/17 05:55) Labs Laboratory Tests Test 10/27/17 06:00 Blood Urea Nitrogen 11 MG/DL Creatinine 0.65 MG/DL Random Glucose 95 MG/DL Calcium Level 8.9 MG/DL Sodium Level 140 MEQ/L Potassium Level 4.1 MEQ/L Chloride Level 106 MEQ/L Carbon Dioxide Level 26.5 MEQ/L Anion Gap 8 MEQ/L Estimat Glomerular Filtration Rate 98 ML/MIN Total Creatine Kinase 98 U/L MDM Medical Decision Making Medical Screen Exam Complete: Yes Emergency Medical Condition: Yes Medical Record Reviewed: Yes Differential Diagnosis Malingering, muscle soreness, myositis, rhabdomyolysis Narrative Course This is a 46-year-old female who reports that she was walking all night and she became tired and her legs began hurting and she did not want to walk anymore. For this reason she called EMS. Physical examination is unremarkable. Her vital signs are reassuring. BMP and CK tests were ordered and they are unremarkable. The patient was given a liter bolus of normal saline. She is stable for discharge. Diagnosis Primary Impression: Pain aggravated by walking Additional Instructions: Follow-up with primary care physician. Return for any emergent medical conditions. Med/Other Pt SpecificInfo: No Change to Meds Disposition: 01 DISCHARGE HOME Condition: Stable Bebeto Cr Oct 27, 2017 05:58
[2017-10-27 06:39] LABS: BICARBONATE 26.5 MEQ/L (21.0-32.0); POTASSIUM 4.1 MEQ/L (3.5-5.1)
== END 2017-10-27 07:10 | disposition home or self-care (01) ==
LOC: NEPD 05:52
DX: M79.605 Pain in left leg (principal); M79.604 Pain in right leg; F31.9 Bipolar disorder, unspecified; F41.9 Anxiety disorder, unspecified; J44.9 Chronic obstructive pulmonary disease, unspecified; R56.9 Unspecified convulsions; F17.210 Nicotine dependence, cigarettes, uncomplicated; Z79.899 Other long term (current) drug therapy; Z88.0 Allergy status to penicillin
CPT/HCPCS: 80048; 82550; 96360; 99284; J7030

== ENCOUNTER 2017-11-01 19:16 | Emergency (ER) | payer OTHER, MEDICAID ==
[~2017-11-01] VITALS: Ht 160 cm; Wt 70.0 kg
[2017-11-01 19:18] VITALS: BP 112/69; PULSE 107; RESP 16; TEMP 97.9; O2SAT 98
[2017-11-01] MEDS ORDERED: DICL75TA PO (20:13)
[2017-11-01] MEDS ORDERED: NAPROXEN 500 MG TAB PO ONE (20:15)
--- NOTE | 2017-11-01 20:20 | PD ---
HPI Chief Complaint: Medical Clearance Time Seen by Provider: 20:04 Travel History International Travel<30 days: No Contact w/Intl Traveler<30days: No Traveled to known affect area: No History of Present Illness HPI 46-year-old white female presents to emergency Department with complaints of pain in her feet from walking. She states that she actually has pain all over. She states that she is disabled and lives on a limited budget. Her car stopped running approximately 3 years ago. She has gotten around by feet since then. She also states that her power has been shut off in her apartment and she was asked to leave because she is behind on rent. The patient was seen on 10/27/17 for the same type of complaint. She had basic laboratory tests including CK performed which were normal. Patient denies any fever chills. No chest pain or shortness of breath. No nausea vomiting. No unusual urine color. PFSH Past Medical History Bipolar Disorder: Yes Anxiety: Yes Depression: Yes Cancer: Yes Cardiovascular Problems: Yes COPD: Yes Diabetes: No Diminished Hearing: No Headaches: No Psychiatric: Yes Seizures: Yes ?: Not Menopausal: No : 1 Para: 1 : 2 Past Surgical History Gynecologic Surgery: Yes (PARTIAL HYSTERECTOMY) Hysterectomy: Yes (PARTIAL) Tonsillectomy: Yes Other Surgery: Yes (SKIN CA REMOVED) Social History Alcohol Use: Yes (OCCASIONALLY) Tobacco Use: Yes (1ppd) Substance Use: Yes (Pot) Allergies-Medications (Allergen,Severity, Reaction): Coded Allergies: amoxicillin (Unverified Allergy, Mild, VOMITING, 11/01/17) Reported Meds & Prescriptions Reported Meds & Active Scripts Active Diclofenac Sodium DR (Diclofenac Sodium) 75 Mg Tabdr 75 Mg PO BID Prednisone 20 Mg Tab 20 Mg PO BID Ventolin Hfa 18 GM Inh (Albuterol Sulfate) 90 Mcg/Act Aer 2 Puff INH Q4-6H PRN Cipro (Ciprofloxacin HCl) 500 Mg Tab 500 Mg PO BID Effexor (Venlafaxine HCl) 50 Mg Tab 50 Mg PO BID Gnp Vitamin B-1 (Thiamine HCl) 100 Mg Tab 100 Mg PO DAILY Senna Plus 8.6-50 mg (Sennosides-Docusate Sodium) 1 Tab Tab 1 Tab PO BID Risperdal M-Tab (Risperidone) 3 Mg Tab 3 Mg PO BID Polyethylene Glycol 3350 Powder (Polyethylene Glycol) 17 Gm Pow 17 Gm PO DAILY Protonix (Pantoprazole Sodium) 20 Mg Tab 20 Mg PO DAILY Invega Sustenna Inj (Paliperidone Palmitate) 234 Mg/1.5 Ml Inj 234 Mg IM Q28D Next injection due 07/24/17 Keppra (Levetiracetam) 500 Mg Tab 500 Mg PO Q12HR Folic Acid 1 Mg Tablet 1 Mg PO DAILY Celexa (Citalopram Hydrobromide) 20 Mg Tab 20 Mg PO DAILY Symbicort Inh (Budesonide/Formoterol Fumarate) 160-4.5 Mcg/Act Aero 2 Puff INH BID Effexor (Venlafaxine HCl) 50 Mg Tab 50 Mg PO BID 30 Days Reported Oxtellar Xr (Oxcarbazepine) 600 Mg Tab 900 Mg PO DAILY Effexor (Venlafaxine HCl) 50 Mg Tab 50 Mg PO Q12H Proair Hfa 8.5 GM Inh (Albuterol Sulfate) 90 Mcg/Act Aer 2 Puff INH Q4-6H PRN 108 mcg/actuation Review of Systems Except as stated in HPI: all other systems reviewed are Neg Physical Exam Narrative GENERAL: This is a well-nourished, well-developed patient, in no apparent distress. SKIN: No rashes, ecchymoses or lesions. Warm and dry. HEAD: Atraumatic. Normocephalic. EYES: PERRL, EOMI, no discharge or injection. No scleral icterus. EARS: Clear NOSE: Nasal turbinates appear normal. THROAT: Mucosa pink and moist. Airway patent. NECK: Trachea midline. supple, moves head freely. LUNGS: Clear to auscultation. CV: Regular in rhythm. ABDOMEN: Soft nontender. EXT: No clubbing cyanosis or edema. Examination of both feet are unremarkable except for nail fungus. She has intact sensation with good distal pulses. There is no erythema or warmth. There is no localizing bony tenderness. Patient is ambulatory. Data Data Last Documented VS Vital Signs Date Time Temp Pulse Resp B/P (MAP) Pulse Ox O2 Delivery O2 Flow Rate FiO2 11/01/17 19:18 97.9 107 16 112/69 (83) 98 Room Air Orders Orders Naproxen (Naprosyn) (11/01/17 20:15) Ed Discharge Order (11/01/17 20:14) MDM Medical Decision Making Medical Screen Exam Complete: Yes Emergency Medical Condition: Yes Medical Record Reviewed: Yes Differential Diagnosis Differential diagnoses: Arthritis, foot pain from walking, malingering Narrative Course Patient's exam is unremarkable. I reviewed her medical record from her last visit on the . I suspect the patient is most likely malingering. She'll be given the benefit of doubt and given Naprosyn 500 mg by mouth and a prescription for diclofenac. This is foot pain Diagnosis Primary Impression: Foot pain, bilateral Patient Instructions: General Instructions Additional Instructions: REST. Elevate. Ice for any acute swelling and pain. Diclofenac. Follow-up with your doctor on Thursday. Return to the emergency Med/Other Pt SpecificInfo: Prescription(s) given Scripts Diclofenac Sodium DR (Diclofenac Sodium DR) 75 Mg Tabdr 75 MG PO BID, #20 TAB 0 Refills Prov: Jesse Whitney MD 11/01/17 Disposition: 01 DISCHARGE HOME Condition: Stable Luan Rodríguez Nov 01, 2017 20:20
[2017-11-01 20:52] VITALS: BP 115/82; TEMP 98.8
== END 2017-11-01 20:52 | disposition home or self-care (01) ==
LOC: NEPD 19:16
DX: M79.672 Pain in left foot (principal); M79.671 Pain in right foot; F31.9 Bipolar disorder, unspecified; J44.9 Chronic obstructive pulmonary disease, unspecified; R56.9 Unspecified convulsions; F41.9 Anxiety disorder, unspecified; F17.200 Nicotine dependence, unspecified, uncomplicated; Z79.899 Other long term (current) drug therapy
CPT/HCPCS: 99283

== ENCOUNTER 2017-12-04 21:36 | Inpatient (IN) | payer OTHER, MEDICAID, MEDICARE ==
[2017-12-04] MEDS: IOHEXOL 350 MG/ML 10 ML VIAL (for RAD DIAG) IVCONTRAST (21:37)
[2017-12-04 23:01] LABS: AUTOMATED NEUTROPHIL # 4.3 TH/MM3 (1.8-7.7); BASOPHIL % 0.4 % (0.0-2.0); EOSINOPHIL # 0.1 TH/MM3 (0-0.4); EOSINOPHIL % 1.5 % (0.0-4.0); HEMATOCRIT 38.7 % (35.0-46.0); HEMO FLAGS DIFF FINAL; LYMPH % 18.7 % (9.0-44.0); LYMPHOCYTE # 1.2 TH/MM3 (1.0-4.8); MEAN CELL VOLUME 87.9 FL (80.0-100.0); MEAN CORPUSCULAR HEMOGLOBIN 29.6 PG (27.0-34.0); MEAN CORPUSCULAR HGB CONC 33.7 % (32.0-36.0); MEAN PLATELET VOLUME 7.8 FL (7.0-11.0); MONO % 9.7 % (0.0-8.0); MONOCYTE # 0.6 TH/MM3 (0-0.9); NEUT % 69.7 % (16.0-70.0); PLATELET COUNT 156 TH/MM3 (150-450); RED BLOOD COUNT 4.41 MIL/MM3 (4.00-5.30); RED CELL DISTRIBUTION WIDTH 14.6 % (11.6-17.2); WHITE BLOOD COUNT 6.1 TH/MM3 (4.0-11.0)
[2017-12-04 23:04] LABS: SALICYLATES 1.9 MG/DL (2.8-20.0)
[2017-12-04 23:06] LABS: ACETAMINOPHEN LESS THAN 2.0 MCG/ML (10.0-30.0); ANION GAP 5 MEQ/L (5-15); BICARBONATE 28.6 MEQ/L (21.0-32.0); BLOOD UREA NITROGEN 7 MG/DL (7-18); CALCIUM 8.2 MG/DL (8.5-10.1); CHLORIDE 105 MEQ/L (98-107); CREATININE 0.69 MG/DL (0.50-1.00); GLOMERULAR FILTRATION RATE 91 ML/MIN (>89); GLUCOSE,RANDOM 89 MG/DL (74-106); POTASSIUM 3.7 MEQ/L (3.5-5.1); SODIUM (NA) 139 MEQ/L (136-145)
[2017-12-04 23:08] LABS: ALCOHOL LESS THAN 3 MG/DL (0-5)
[2017-12-05 01:20] LABS: BILIRUBIN, URINE NEG (NEG); BLOOD, URINE NEG (NEG); GLUCOSE,URINE NEG (NEG); KETONE, URINE NEG (NEG); NITRITE,URINE NEG (NEG); SQUAMOUS EPITHELIAL CELL URINE 2 /hpf (0-5); URINE COLOR LIGHT-YELLOW (YELLW/STRAW); URINE LEUKOCYTE ESTERASE MOD (NEG)
[2017-12-05 01:29] LABS: AMPHETAMINE, URINE NEG (NEG); BARBITURATES, URINE NEG (NEG); BENZODIAZEPINE,URINE NEG (NEG); CANNABINOIDS, URINE NEG (NEG); COCAINE, URINE NEG (NEG); COMMENT (UR) CULT NOT INDICATED; CULTURE IF INDICATED CULT NOT INDICATED
[2017-12-05] MEDS ORDERED: ALBUTEROL SULFATE 90 MCG/ACT HFA 8 GM INHALER INH (20:00)
[2017-12-05] MEDS ORDERED: MAGNESIUM HYDROXIDE SUSP 30 ML CUP PO (20:00)
[2017-12-05] MEDS: levETIRAcetam 500 MG TAB PO (21:34)
[2017-12-05] MEDS: risperiDONE ODT 3 MG TAB PO (21:34)
[2017-12-05] MEDS: BUDESONIDE-FORMOTEROL 160/4.5 MCG INHALER INH (21:34)
[2017-12-06] MEDS: risperiDONE ODT 3 MG TAB PO ×2 (08:46→21:08)
[2017-12-06] MEDS: PANTOPRAZOLE SOD 20 MG DELAYED RELEASE TAB PO (08:46)
[2017-12-06] MEDS: levETIRAcetam 500 MG TAB PO ×2 (08:46→21:08)
[2017-12-06] MEDS: FOLIC ACID 1 MG TAB PO (08:46)
[2017-12-06] MEDS: BUDESONIDE-FORMOTEROL 160/4.5 MCG INHALER INH ×2 (08:54→21:10)
[2017-12-06] MEDS ORDERED: OXCARBAZEPINE 900 MG PO (09:00)
[2017-12-06 11:06] LABS: ANION GAP 6 MEQ/L (5-15); BICARBONATE 30.2 MEQ/L (21.0-32.0); BLOOD UREA NITROGEN 12 MG/DL (7-18); CALCIUM 8.6 MG/DL (8.5-10.1); CHLORIDE 103 MEQ/L (98-107); CREATININE 0.71 MG/DL (0.50-1.00); GLOMERULAR FILTRATION RATE 88 ML/MIN (>89); GLUCOSE,RANDOM 73 MG/DL (74-106); POTASSIUM 3.7 MEQ/L (3.5-5.1); SODIUM (NA) 139 MEQ/L (136-145)
[2017-12-06 11:07] LABS: CHOLESTEROL 95 MG/DL (120-200)
[2017-12-06 11:33] LABS: CHOLESTEROL/ HDL RATIO 2.14 RATIO; HDL CHOLESTEROL 44.3 MG/DL (40.0-60.0); LDL CHOLESTEROL 24 MG/DL (0-99); TRIGLYCERIDES 135 MG/DL (42-150)
[2017-12-06 13:29] LABS: HEMOGLOBIN A1C 5.5 % (4.3-6.0); HEMOGLOBIN A1a 1.4 %; HEMOGLOBIN A1b 1.5 %; HEMOGLOBIN Ao 85.2 %; HEMOGLOBIN LA1C 2.1 %; HEMOGLOBIN P3 3.7 %
[2017-12-06] MEDS: POLYETHYLENE GLYCOL 17 GM PKG PO (15:28)
[2017-12-06] MEDS: NICOTINE 14 MG/24 HR PATCH T-DERMAL (17:09)
[2017-12-06] MEDS: MULTIVITAMIN TAB PO (17:09)
[2017-12-06] MEDS: THIAMINE HCL 100 MG TAB PO (17:09)
[2017-12-06] MEDS: DOCUSATE SODIUM 50 MG/SENNA 8.6 MG TAB PO (21:08)
[2017-12-07] MEDS: NICOTINE 14 MG/24 HR PATCH T-DERMAL (09:00)
[2017-12-07] MEDS: DOCUSATE SODIUM 50 MG/SENNA 8.6 MG TAB PO ×2 (09:00→21:52)
[2017-12-07] MEDS: POLYETHYLENE GLYCOL 17 GM PKG PO (09:00)
[2017-12-07] MEDS: REMOVE OLD PATCH T-DERMAL (09:00)
[2017-12-07] MEDS: PANTOPRAZOLE SOD 20 MG DELAYED RELEASE TAB PO (09:05)
[2017-12-07] MEDS: MULTIVITAMIN TAB PO (09:05)
[2017-12-07] MEDS: THIAMINE HCL 100 MG TAB PO (09:05)
[2017-12-07] MEDS: levETIRAcetam 500 MG TAB PO ×2 (09:05→21:52)
[2017-12-07] MEDS: risperiDONE ODT 3 MG TAB PO ×2 (09:05→21:52)
[2017-12-07] MEDS: FOLIC ACID 1 MG TAB PO (09:05)
[2017-12-07] MEDS: BUDESONIDE-FORMOTEROL 160/4.5 MCG INHALER INH ×2 (09:06→21:52)
[2017-12-07 11:35] LABS: AUTOMATED NEUTROPHIL # 4.9 TH/MM3 (1.8-7.7); BASOPHIL % 0.4 % (0.0-2.0); EOSINOPHIL # 0.1 TH/MM3 (0-0.4); EOSINOPHIL % 1.3 % (0.0-4.0); HEMATOCRIT 38.6 % (35.0-46.0); HEMO FLAGS DIFF FINAL; LYMPHOCYTE # 1.4 TH/MM3 (1.0-4.8); MEAN CELL VOLUME 88.9 FL (80.0-100.0); MEAN CORPUSCULAR HEMOGLOBIN 29.8 PG (27.0-34.0); MEAN CORPUSCULAR HGB CONC 33.6 % (32.0-36.0); MEAN PLATELET VOLUME 7.8 FL (7.0-11.0); MONO % 8.7 % (0.0-8.0); MONOCYTE # 0.6 TH/MM3 (0-0.9); NEUT % 69.6 % (16.0-70.0); PLATELET COUNT 151 TH/MM3 (150-450); RED BLOOD COUNT 4.35 MIL/MM3 (4.00-5.30); RED CELL DISTRIBUTION WIDTH 14.7 % (11.6-17.2)
[2017-12-07 11:58] LABS: HEMOGLOBIN A1C 5.6 % (4.3-6.0); HEMOGLOBIN A1a 1.7 %; HEMOGLOBIN A1b 1.5 %; HEMOGLOBIN Ao 84.9 %; HEMOGLOBIN LA1C 2.2 %; HEMOGLOBIN P3 3.6 %
[2017-12-07 12:02] LABS: ALBUMIN 2.9 GM/DL (3.4-5.0); ALT (GPT) 17 U/L (10-53); ANION GAP 3 MEQ/L (5-15); AST (GOT) 6 U/L (15-37); BICARBONATE 31.8 MEQ/L (21.0-32.0); BLOOD UREA NITROGEN 10 MG/DL (7-18); CALCIUM 8.6 MG/DL (8.5-10.1); CHLORIDE 105 MEQ/L (98-107); CREATININE 0.72 MG/DL (0.50-1.00); GLOMERULAR FILTRATION RATE 87 ML/MIN (>89); GLUCOSE,RANDOM 93 MG/DL (74-106); MAGNESIUM 2.1 MG/DL (1.5-2.5); PHOSPHORUS 3.3 MG/DL (2.5-4.9); POTASSIUM 4.1 MEQ/L (3.5-5.1); SODIUM (NA) 140 MEQ/L (136-145)
[2017-12-07 12:11] LABS: ALKALINE PHOSPHATASE 54 U/L (45-117); FREE T4 1.21 NG/DL (0.76-1.46); TOTAL BILIRUBIN ADULT 0.3 MG/DL (0.2-1.0); TOTAL PROTEIN 6.2 GM/DL (6.4-8.2)
[2017-12-07] MEDS: ACETAMINOPHEN 325 MG TAB PO (22:13)
[2017-12-08] MEDS: PANTOPRAZOLE SOD 20 MG DELAYED RELEASE TAB PO (08:35)
[2017-12-08] MEDS: DOCUSATE SODIUM 50 MG/SENNA 8.6 MG TAB PO ×2 (08:35→20:31)
[2017-12-08] MEDS: FOLIC ACID 1 MG TAB PO (08:35)
[2017-12-08] MEDS: BUDESONIDE-FORMOTEROL 160/4.5 MCG INHALER INH ×2 (08:35→20:31)
[2017-12-08] MEDS: MULTIVITAMIN TAB PO (08:35)
[2017-12-08] MEDS: risperiDONE ODT 3 MG TAB PO ×2 (08:35→20:31)
[2017-12-08] MEDS: THIAMINE HCL 100 MG TAB PO (08:35)
[2017-12-08] MEDS: POLYETHYLENE GLYCOL 17 GM PKG PO (08:35)
[2017-12-08] MEDS: levETIRAcetam 500 MG TAB PO ×2 (08:37→20:31)
[2017-12-08] MEDS: REMOVE OLD PATCH T-DERMAL (08:39)
[2017-12-08] MEDS: NICOTINE 14 MG/24 HR PATCH T-DERMAL (08:39)
[2017-12-08 17:01] LABS: AMMONIA 21 MCMOL/L (11-32)
[2017-12-08] MEDS: OXcarbazepine 600 MG TAB PO (20:31)
[2017-12-09] MEDS: POLYETHYLENE GLYCOL 17 GM PKG PO (08:41)
[2017-12-09] MEDS: MULTIVITAMIN TAB PO (08:42)
[2017-12-09] MEDS: risperiDONE ODT 3 MG TAB PO ×2 (08:42→08:48)
[2017-12-09] MEDS: FOLIC ACID 1 MG TAB PO (08:42)
[2017-12-09] MEDS: DOCUSATE SODIUM 50 MG/SENNA 8.6 MG TAB PO ×3 (08:42→21:32)
[2017-12-09] MEDS: THIAMINE HCL 100 MG TAB PO (08:42)
[2017-12-09] MEDS: PANTOPRAZOLE SOD 20 MG DELAYED RELEASE TAB PO (08:42)
[2017-12-09] MEDS: OXcarbazepine 600 MG TAB PO ×2 (08:42→21:32)
[2017-12-09] MEDS: levETIRAcetam 500 MG TAB PO ×3 (08:42→21:32)
[2017-12-09] MEDS: NICOTINE 14 MG/24 HR PATCH T-DERMAL (08:47)
[2017-12-09] MEDS: REMOVE OLD PATCH T-DERMAL (08:47)
[2017-12-09] MEDS: BUDESONIDE-FORMOTEROL 160/4.5 MCG INHALER INH ×2 (08:50→21:31)
[2017-12-09] MEDS: GADODIAMIDE PF 287 MG/ML 5 ML VIAL (for RAD MRI) IVCONTRAST (12:20)
[2017-12-09] MEDS: risperiDONE ODT 2 MG TAB PO (21:32)
[2017-12-10] MEDS: POLYETHYLENE GLYCOL 17 GM PKG PO (08:21)
[2017-12-10] MEDS: FOLIC ACID 1 MG TAB PO (08:23)
[2017-12-10] MEDS: risperiDONE ODT 2 MG TAB PO ×2 (08:23→21:53)
[2017-12-10] MEDS: MULTIVITAMIN TAB PO (08:24)
[2017-12-10] MEDS: THIAMINE HCL 100 MG TAB PO (08:24)
[2017-12-10] MEDS: DOCUSATE SODIUM 50 MG/SENNA 8.6 MG TAB PO ×2 (08:24→21:53)
[2017-12-10] MEDS: OXcarbazepine 600 MG TAB PO ×2 (08:24→21:52)
[2017-12-10] MEDS: PANTOPRAZOLE SOD 20 MG DELAYED RELEASE TAB PO (08:24)
[2017-12-10] MEDS: levETIRAcetam 500 MG TAB PO ×2 (08:24→21:53)
[2017-12-10] MEDS: BUDESONIDE-FORMOTEROL 160/4.5 MCG INHALER INH ×2 (08:25→21:53)
[2017-12-10] MEDS: REMOVE OLD PATCH T-DERMAL (08:25)
[2017-12-10] MEDS: NICOTINE 14 MG/24 HR PATCH T-DERMAL (08:25)
[2017-12-10] MEDS: ERGOCALCIFEROL (VIT D2) 50,000 UNIT CAP PO ×2 (13:00→13:46)
[2017-12-11] MEDS: NICOTINE 14 MG/24 HR PATCH T-DERMAL (09:00)
[2017-12-11] MEDS: POLYETHYLENE GLYCOL 17 GM PKG PO (09:00)
[2017-12-11] MEDS: levETIRAcetam 500 MG TAB PO ×3 (09:00→22:39)
[2017-12-11] MEDS: REMOVE OLD PATCH T-DERMAL (09:00)
[2017-12-11] MEDS: THIAMINE HCL 100 MG TAB PO (10:55)
[2017-12-11] MEDS: DOCUSATE SODIUM 50 MG/SENNA 8.6 MG TAB PO ×2 (10:55→22:39)
[2017-12-11] MEDS: OXcarbazepine 600 MG TAB PO ×2 (10:56→22:39)
[2017-12-11] MEDS: PANTOPRAZOLE SOD 20 MG DELAYED RELEASE TAB PO (10:57)
[2017-12-11] MEDS: MULTIVITAMIN TAB PO (10:57)
[2017-12-11] MEDS: risperiDONE ODT 2 MG TAB PO ×2 (10:57→22:40)
[2017-12-11] MEDS: FOLIC ACID 1 MG TAB PO (10:58)
[2017-12-11] MEDS: BUDESONIDE-FORMOTEROL 160/4.5 MCG INHALER INH ×2 (11:05→22:40)
[2017-12-12] MEDS: levETIRAcetam 500 MG TAB PO ×2 (09:00→21:40)
[2017-12-12] MEDS: POLYETHYLENE GLYCOL 17 GM PKG PO (09:00)
[2017-12-12] MEDS: PANTOPRAZOLE SOD 20 MG DELAYED RELEASE TAB PO (09:00)
[2017-12-12] MEDS: risperiDONE ODT 2 MG TAB PO ×2 (09:00→21:40)
[2017-12-12] MEDS: REMOVE OLD PATCH T-DERMAL (09:00)
[2017-12-12] MEDS: OXcarbazepine 600 MG TAB PO ×2 (10:09→21:40)
[2017-12-12] MEDS: MULTIVITAMIN TAB PO (10:11)
[2017-12-12] MEDS: THIAMINE HCL 100 MG TAB PO (10:11)
[2017-12-12] MEDS: DOCUSATE SODIUM 50 MG/SENNA 8.6 MG TAB PO ×2 (10:11→21:40)
[2017-12-12] MEDS: BUDESONIDE-FORMOTEROL 160/4.5 MCG INHALER INH ×2 (10:12→21:40)
[2017-12-12] MEDS: FOLIC ACID 1 MG TAB PO (10:12)
[2017-12-12] MEDS: NICOTINE 14 MG/24 HR PATCH T-DERMAL (10:19)
[2017-12-12] MEDS: ALUMINUM/MAGNESIUM/SIMETH 30 ML CUP PO (18:48)
[2017-12-13] MEDS: OXcarbazepine 600 MG TAB PO ×2 (08:53→20:59)
[2017-12-13] MEDS: FOLIC ACID 1 MG TAB PO (08:53)
[2017-12-13] MEDS: MULTIVITAMIN TAB PO (08:54)
[2017-12-13] MEDS: DOCUSATE SODIUM 50 MG/SENNA 8.6 MG TAB PO ×2 (08:54→20:59)
[2017-12-13] MEDS: THIAMINE HCL 100 MG TAB PO (08:54)
[2017-12-13] MEDS: NICOTINE 14 MG/24 HR PATCH T-DERMAL (08:55)
[2017-12-13] MEDS: POLYETHYLENE GLYCOL 17 GM PKG PO (08:55)
[2017-12-13] MEDS: risperiDONE ODT 2 MG TAB PO ×3 (09:00→20:59)
[2017-12-13] MEDS: PANTOPRAZOLE SOD 20 MG DELAYED RELEASE TAB PO (09:00)
[2017-12-13] MEDS: REMOVE OLD PATCH T-DERMAL (09:00)
[2017-12-13] MEDS: levETIRAcetam 500 MG TAB PO ×2 (09:00→20:59)
[2017-12-13] MEDS: BUDESONIDE-FORMOTEROL 160/4.5 MCG INHALER INH ×2 (09:02→20:59)
[2017-12-13] MEDS: ACETAMINOPHEN 325 MG TAB PO (21:21)
[2017-12-14] MEDS: REMOVE OLD PATCH T-DERMAL (09:00)
[2017-12-14] MEDS: NICOTINE 14 MG/24 HR PATCH T-DERMAL (09:00)
[2017-12-14] MEDS: risperiDONE ODT 2 MG TAB PO ×2 (09:07→20:53)
[2017-12-14] MEDS: PANTOPRAZOLE SOD 20 MG DELAYED RELEASE TAB PO (09:07)
[2017-12-14] MEDS: BUDESONIDE-FORMOTEROL 160/4.5 MCG INHALER INH ×2 (09:07→20:53)
[2017-12-14] MEDS: DOCUSATE SODIUM 50 MG/SENNA 8.6 MG TAB PO ×2 (09:07→20:53)
[2017-12-14] MEDS: FOLIC ACID 1 MG TAB PO (09:07)
[2017-12-14] MEDS: THIAMINE HCL 100 MG TAB PO (09:07)
[2017-12-14] MEDS: MULTIVITAMIN TAB PO (09:08)
[2017-12-14] MEDS: OXcarbazepine 600 MG TAB PO ×2 (09:08→20:53)
[2017-12-14] MEDS: POLYETHYLENE GLYCOL 17 GM PKG PO (09:08)
[2017-12-14] MEDS: levETIRAcetam 500 MG TAB PO (09:08)
[2017-12-14] MEDS: levETIRAcetam 250 MG TAB PO (20:53)
[2017-12-15] MEDS: NICOTINE 14 MG/24 HR PATCH T-DERMAL (09:00)
[2017-12-15] MEDS: levETIRAcetam 250 MG TAB PO (09:00)
[2017-12-15] MEDS: REMOVE OLD PATCH T-DERMAL (09:00)
[2017-12-15] MEDS: BUDESONIDE-FORMOTEROL 160/4.5 MCG INHALER INH (09:27)
[2017-12-15] MEDS: POLYETHYLENE GLYCOL 17 GM PKG PO (09:30)
[2017-12-15] MEDS: PANTOPRAZOLE SOD 20 MG DELAYED RELEASE TAB PO (09:30)
[2017-12-15] MEDS: OXcarbazepine 600 MG TAB PO (09:31)
[2017-12-15] MEDS: DOCUSATE SODIUM 50 MG/SENNA 8.6 MG TAB PO (09:31)
[2017-12-15] MEDS: THIAMINE HCL 100 MG TAB PO (09:31)
[2017-12-15] MEDS: MULTIVITAMIN TAB PO (09:31)
[2017-12-15] MEDS: FOLIC ACID 1 MG TAB PO (09:31)
[2017-12-15] MEDS: risperiDONE ODT 2 MG TAB PO (09:31)
== END 2017-12-15 16:40 | disposition home or self-care (01) | DRG 885 ==
LOC: NEPD 21:36 → NEDA 12-05 20:04 → H250 12-05 22:27
DX: F25.0 Schizoaffective disorder, bipolar type (principal); G40.909 Epilepsy, unspecified, not intractable, without status epilepticus; J44.9 Chronic obstructive pulmonary disease, unspecified; Z59.0 Homelessness; F17.200 Nicotine dependence, unspecified, uncomplicated; F10.10 Alcohol abuse, uncomplicated; Z62.810 Personal history of physical and sexual abuse in childhood; Z85.828 Personal history of other malignant neoplasm of skin
CPT/HCPCS: 70450; 70553; 74177; 80048; 80053; 80061; 80307; 81001; 82140; 82306; 82607; 83036; 83735; 84100; 84439; 84443; 84703; 85025; 93005; 95819; 99285-25